=== PATIENT | female | born 1985 | race Caucasian/White ===

== ENCOUNTER 2018-03-19 14:25 | Emergency (ER) | payer OTHER, MEDICAID ==
[2018-03-19 14:43] VITALS: BP 166/102
--- NOTE | 2018-03-19 16:03 | XRAY Report ---
Reason: twisted rt ankle, pain Procedure Date: 03/19/2018 Accession Number: [id number] / [id number] Procedure: XR - Ankle 3 View RT CPT Code: FULL RESULT: EXAM: RIGHT ANKLE RADIOGRAPHY EXAM DATE: 03/19/2018 03:51 PM. CLINICAL HISTORY: Twisted right ankle yesterday. Pain and swelling. COMPARISON: None. TECHNIQUE: 3 views. FINDINGS: Bones: Normal. No fractures or bone lesions. Joints: Normal. No effusion. No subluxations. The ankle mortise is normally aligned. Soft Tissues: Unremarkable. IMPRESSION: Normal ankle radiography. [facility]
[2018-03-19] MEDS ORDERED: HYDROcod/ACETAM 5/325 MG TABLET PO STA (16:29)
--- NOTE | 2018-03-19 16:31 | ED Physician Documentation ---
PD HPI LOWER EXT INJURY - Stated complaint Stated Complaint: RT ANKLE PX - Chief complaint Chief Complaint: Ext Problem - History obtained from History obtained from: Patient - History of Present Illness PD HPI LOW EXT INJURY LOCATION: Right, Ankle Type of injury: Twist Where injury occurred: Work Timing - onset: Yesterday Timing - duration: Days (1) Timing - details: Gradual onset Pain level max: 6 Pain level now: 5 Improved by: Rest, Ice, Immobilization Worsened by: Moving, Palpating Associated symptoms: Swelling. No: Weakness, Numbness, Tingling Contributing factors: No: Anticoagulated, Prior ortho surgery Recently seen: Not recently seen Review of Systems Constitutional: denies: Fever, Chills GI: denies: Abdominal Pain, Vomiting, Diarrhea : denies: Now EGA Skin: denies: Rash PD PAST MEDICAL HISTORY - Past Medical History Past Medical History: No - Present Medications Home Medications: Ambulatory Orders Medication Instructions Recorded Confirmed Hydrocodone/Acetaminophen 1 - 2 each PO Q6H PRN #14 tablet 03/19/18 [Hydrocodon-Acetaminophen 5-325] - Allergies Allergies/Adverse Reactions: Allergies Allergy/AdvReac Type Severity Reaction Status Date / Time ibuprofen Allergy Unknown Verified 03/19/18 16:10 - Social History Does the pt smoke?: No Smoking Status: Never smoker PD ED PE NORMAL - Vitals Vital signs reviewed: Yes - General General: Alert and oriented X 3, No acute distress - Derm Derm: Warm and dry - Extremities Extremities: Other (R ankle - TTP medial malleolus. No other acute findings over the foot and ankle. NVI.) - Neuro Neuro: Alert and oriented X 3 - Psych Psych: Normal mood, Normal affect Results - Vitals Vitals: Vital Signs - 24 hr 03/19/18 14:34 Temperature 36.3 C L Heart Rate 90 Respiratory 18 Rate Blood Pressure 166/102 H O2 Saturation 99 Oxygen O2 Source Room air - Rads (name of study) R ankle xray Radiology: Prelim report reviewed, EMP read contemporaneously, See rad report (no acute bony abnormality.) PD MEDICAL DECISION MAKING - ED course Complexity details: reviewed results, re-evaluated patient, considered differential, d/w patient ED course: Patient is a 33-year-old female with a right ankle sprain. No acute findings on x-ray. Placed in a gel splint and given crutches. Will have her follow-up with her doctor for further care. Patient counseled regarding signs and symptoms for which I believe and urgent re-evaluation would be necessary. Patient with good understanding of and agreement to plan and is comfortable going home at this time This document was made in part using voice recognition software. While efforts are made to proofread this document, sound alike and grammatical errors may occur. Departure - Departure Disposition: 01 Home, Self Care Clinical Impression: Right ankle sprain Qualifiers: Encounter type: initial encounter Involved ligament of ankle: unspecified ligament Qualified Code(s): S93.401A - Sprain of unspecified ligament of right ankle, initial encounter Condition: Good Instructions: ED Sprain Ankle W X Ray Follow-Up: your,doctor in 1 week [Other] Prescriptions: Hydrocodone/Acetaminophen [Hydrocodon-Acetaminophen 5-325] 1 - 2 each PO Q6H PRN #14 tablet PRN Reason: pain Comments: Return if you worsen. Follow-up with your doctor for further care. You may bear weight as tolerated. This should improve over the next week. Do not drink alcohol or drive while on narcotic pain medicine. Note that many narcotic pain relievers also contain tylenol/acetaminophen. Please ensure that your total dose of acetaminophen from all sources does not exceed 3 grams (3000mg) per day. You may constipated on this medication, take a stool softener such as "Colace" twice a day while you are on it. Also recommend a segw-yki-iupnmft laxative such as senna or MiraLAX any day that you do not have a bowel movement. If you received narcotic pain medication in the emergency department, do not drive or operate machinery for the next 24 hours. Forms: Activity restrictions Discharge Date/Time: 03/19/18 16:55
== END 2018-03-19 16:55 | disposition home or self-care (01) ==
LOC: ED 14:25
DX: S93.401A Sprain of unspecified ligament of right ankle, initial encounter (principal); X50.1XXA Overexertion from prolonged static or awkward postures, initial encounter; Y99.0 Civilian activity done for income or pay
CPT/HCPCS: 73610; 99283; A9270

== ENCOUNTER 2018-07-02 03:45 | Outpatient (CLI) | payer MEDICAID | END 2018-07-02 03:46 | disposition critical access hospital (66) | LOC: EMS 03:45 | PROVIDERS: ATTEND Surgery | DX: R07.9 Chest pain, unspecified (principal); M25.562 Pain in left knee; V48.0XXA Car driver injured in noncollision transport accident in nontraffic accident, initial encounter; Y92.413 State road as the place of occurrence of the external cause | CPT/HCPCS: A0425; A0429; A0999 ==

== ENCOUNTER 2018-07-02 04:11 | Emergency (ER) | payer OTHER, MEDICAID ==
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
[2018-07-02] MEDS ORDERED: ACETAMINOPHEN 325 MG TABLET PO STA (04:41)
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
[2018-07-02] MEDS ORDERED: METHOCARBAMOL 500 MG TABLET PO STA (06:41)
[2018-07-02] MEDS ORDERED: MORPHINE 10 MG/ML VIAL IM STA (06:41)
[2018-07-02 08:39] VITALS: BP 122/86
== END 2018-07-02 08:42 | disposition home or self-care (01) ==
LOC: EDUNIT# → ED 04:11
DX: S16.1XXA Strain of muscle, fascia and tendon at neck level, initial encounter (principal); S00.03XA Contusion of scalp, initial encounter; S20.211A Contusion of right front wall of thorax, initial encounter; S80.02XA Contusion of left knee, initial encounter; S80.01XA Contusion of right knee, initial encounter; V47.5XXA Car driver injured in collision with fixed or stationary object in traffic accident, initial encounter
CPT/HCPCS: 36415; 70450; 71250; 72125; 73562; 96372; 99284; A9270

== ENCOUNTER 2019-09-17 22:39 | Emergency (ER) | payer MEDICAID, OTHER ==
[2019-09-17 23:15] LABS: BILIRUBIN,URINE NEGATIVE (NEGATIVE); GLUCOSE, URINE (UA) NEGATIVE (NEGATIVE); KETONES,URINE (UA) NEGATIVE (NEGATIVE); LEUKOCYTE ESTERASE, URINE NEGATIVE (NEGATIVE); NITRITE,URINE NEGATIVE (NEGATIVE); OCCULT BLOOD,URINE TRACE-INTA (NEGATIVE); PROTEIN,URINE NEGATIVE (NEGATIVE); UROBILINOGEN,URINE 0.2 (NORMAL) E.U./dL (NORMAL)
[2019-09-17 23:17] LABS: CLARITY,URINE CLEAR (CLEAR)
[2019-09-17 23:33] LABS: HCG UR QUAL NEGATIVE
--- NOTE | 2019-09-17 23:37 | ED Physician Documentation ---
PD HPI ABD PAIN - Stated complaint Stated Complaint: ABD PX/FEM PX - Chief complaint Chief Complaint: UTI - History obtained from History obtained from: Patient - History of Present Illness Timing - onset: How many days ago (2-3) Timing - duration: Days Timing - details: Gradual onset, Constant, Waxing and waning Pain level max: 8 Pain level now: 6 Quality: Pain Location: Other (vaginal and left pelvis) Radiation: Lower back Improved by: Other (nothing) Worsened by: Palpation Associated symptoms: Dysuria, Vaginal dc (scant). No: Fever, Hematuria, Vaginal bleeding Recently seen: Not recently seen - Additional information Additional information: c/o 2-3 days of vaginal pain, predominantly left-sided and area of tenderness to palpation on left introitus. pain has progressed in area to involve left pelvis. Initially she thought she might have a yeast infection and today she completed 3 days of OTC monistat without improvement. she reports fevers x 2 days with Tmax 101 this morning. tonight she developed pain across her lower back that radiates down BLE "to my knees", "burning sensation in my whole body". She also reports burning dysuria x 2 days Review of Systems Constitutional: reports: Fever, Chills, Sweats Throat: denies: Sore throat Cardiac: reports: Reviewed and negative Respiratory: reports: Reviewed and negative GI: denies: Abdominal Pain (pelvic pain, but not abdominal pain per se), Abdominal Swelling, Nausea, Vomiting, Diarrhea : reports: Dysuria, Discharge (scant). denies: Frequency, Hematuria, Vaginal bleeding, Now EGA Skin: denies: Rash Musculoskeletal: reports: Back pain PD PAST MEDICAL HISTORY - Past Medical History Cardiovascular: None Respiratory: None Neuro: None Endocrine/Autoimmune: None GI: None - Past Surgical History Past Surgical History: Yes - Present Medications Home Medications: Ambulatory Orders Medication Instructions Recorded Confirmed Oxycodone HCl/Acetaminophen 1 - 2 each PO Q6H PRN #14 tablet 09/18/19 [Percocet 5-325 mg Tablet] Sulfamethox/Trimeth 800/160 1 each PO BID #14 tablet 09/18/19 [Bactrim Ds 800/160] - Allergies Allergies/Adverse Reactions: Allergies Allergy/AdvReac Type Severity Reaction Status Date / Time ibuprofen Allergy Unknown Verified 09/17/19 22:47 - Social History Does the pt smoke?: No Smoking Status: Never smoker Does the pt drink ETOH?: Yes - POLST Patient has POLST: No PD ED PE NORMAL - Vitals Vital signs reviewed: Yes - General General: Alert and oriented X 3, Other (obese. appears uncomfortable) - HEENT HEENT: Moist mucous membranes - Neck Neck: Supple, no meningeal sign - Cardiac Cardiac: No murmur - Respiratory Respiratory: No respiratory distress, Clear bilaterally - Abdomen Abdomen: Soft, Non tender - Back Back: No CVA TTP - Derm Derm: Normal color, Warm and dry, No rash PD ED PE EXPANDED - Cardiac Cardiac: Tachy, Regular Rhythm - Female Female : Normal external, Vaginal Discharge (scant clear/white d/c), Cultures sent, Specialties Operator present (TERENCE Rose), Other (TTP left introitus without visible erythema or swelling. exam limited by obesity. she reported significant painful discomfort left introitus with insertion and withdrawal of speculum). No: Skin lesions, Vaginal Bleeding, CMT Results - Vitals Vitals: Vital Signs - 24 hr 09/17/19 09/18/19 22:44 03:18 Temperature 37.4 C 37.4 C Heart Rate 135 H 110 H Respiratory 18 18 Rate Blood Pressure 154/87 H 140/84 H O2 Saturation 99 99 Oxygen O2 Source Room air - Labs Labs: Microbiology 09/18/19 00:50 Wet Prep - Final Genital - Cervix Laboratory Tests 09/17/19 09/17/19 09/17/19 23:00 23:08 23:51 WBC 12.1 H RBC 4.34 Hgb 12.6 Hct 38.7 MCV 89.2 MCH 29.0 MCHC 32.6 RDW 12.9 Plt Count 269 MPV 9.3 Neut # (Auto) 9.3 H Lymph # (Auto) 1.9 [place] # (Auto) 0.6 Eos # (Auto) 0.2 Baso # (Auto) 0.1 Absolute Nucleated RBC 0.00 Nucleated RBC % 0.0 Sodium Potassium Chloride Carbon Dioxide Anion Gap BUN Creatinine Estimated GFR (MDRD) Glucose Calcium Total Bilirubin AST ALT Alkaline Phosphatase Total Protein Albumin Globulin Albumin/Globulin Ratio Lipase Urine Color YELLOW Urine Clarity CLEAR Urine pH 6.0 Ur Specific [place] 1.015 1.015 Urine Protein NEGATIVE Urine Glucose (UA) NEGATIVE Urine Ketones NEGATIVE Urine Occult Blood TRACE-INTA Urine Nitrite NEGATIVE Urine Bilirubin NEGATIVE Urine Urobilinogen 0.2 (NORMAL) Ur Leukocyte Esterase NEGATIVE Ur Microscopic Review NOT INDICATED Urine Culture Comments NOT INDICATED Urine HCG, Qual NEGATIVE 09/17/19 23:51 WBC RBC Hgb Hct MCV MCH MCHC RDW Plt Count MPV Neut # (Auto) Lymph # (Auto) [place] # (Auto) Eos # (Auto) Baso # (Auto) Absolute Nucleated RBC Nucleated RBC % Sodium 136 Potassium 3.7 Chloride 103 Carbon Dioxide 24 Anion Gap 9.0 BUN 8 Creatinine 0.6 Estimated GFR (MDRD) 114 Glucose 125 H Calcium 9.0 Total Bilirubin 0.3 AST 24 ALT 27 Alkaline Phosphatase 78 Total Protein 7.8 Albumin 4.1 Globulin 3.7 Albumin/Globulin Ratio 1.1 Lipase 25 Urine Color Urine Clarity Urine pH Ur Specific [place] Urine Protein Urine Glucose (UA) Urine Ketones Urine Occult Blood Urine Nitrite Urine Bilirubin Urine Urobilinogen Ur Leukocyte Esterase Ur Microscopic Review Urine Culture Comments Urine HCG, Qual PD MEDICAL DECISION MAKING - ED course Complexity details: reviewed results, re-evaluated patient, considered differential, d/w patient ED course: on reevaluation, patient reported improvement after PO vicodin. results reviewed w/patient. No etiology for her symptoms on tonight's tests. Her exam is concerning for possible early focal inflammatory process, such as left bartholin's gland infection, although at this time there is no visible or drainable collection. Given her exam findings, and her report of fevers to 101 at home, will rx bactrim (first dose in ED) to cover possible early bartholin's gland infection Departure - Departure Disposition: 01 Home, Self Care Clinical Impression: Vaginal infection Condition: Good Instructions: ED Vaginosis Bacterial Prescriptions: Oxycodone HCl/Acetaminophen [Percocet 5-325 mg Tablet] 1 - 2 each PO Q6H PRN #14 tablet PRN Reason: pain Sulfamethox/Trimeth 800/160 [Bactrim Ds 800/160] 1 each PO BID #14 tablet Discharge Date/Time: 09/18/19 03:18
[2019-09-17 23:57] LABS: BASOPHILS # (AUTO) 0.1 10^3/uL (0.0-0.1); BASOPHILS % (AUTO) 0.5 %; EOSINOPHILS # (AUTO) 0.2 10^3/uL (0.0-0.7); EOSINOPHILS % (AUTO) 1.5 %; HGB - HEMOGLOBIN 12.6 g/dL (12.0-16.0); LYMPHOCYTES # (AUTO) 1.9 10^3/uL (1.5-3.5); LYMPHOCYTES % (AUTO) 15.7 %; MEAN CORPUSCULAR HGB CONC 32.6 g/dL (32.0-36.0); MEAN CORPUSCULAR VOLUME 89.2 fL (81.0-99.0); MEAN PLATELET VOLUME 9.3 fL (7.9-10.8); MONOCYTES # (AUTO) 0.6 10^3/uL (0.0-1.0); MONOCYTES % (AUTO) 5.1 %; NEUTROPHILS # (AUTO) 9.3 10^3/uL (1.5-6.6); NEUTROPHILS % (AUTO) 76.7 %; PLT - PLATELET COUNT 269 10^3/uL (130-450); RED BLOOD COUNT 4.34 10^6/uL (4.20-5.40); RED CELL DISTRIBUTION WIDTH 12.9 % (12.0-15.0); WHITE BLOOD COUNT 12.1 x10^3/uL (4.8-10.8)
[2019-09-18 00:08] LABS: ALBUMIN 4.1 g/dL (3.2-5.5); ALBUMIN/GLOBULIN RATIO 1.1 (1.0-2.2); BILIRUBIN,TOTAL 0.3 mg/dL (0.2-1.0); CREATININE 0.6 mg/dL (0.4-1.0); TOTAL PROTEIN 7.8 g/dL (6.7-8.2)
[2019-09-18] MEDS: HYDROcod/ACETAM 5/325 MG TABLET PO STA (01:01)
--- NOTE | 2019-09-18 02:38 | Ultrasound Report ---
Reason: left pelvic pain Procedure Date: 09/18/2019 Accession Number: [id number] / [id number] Procedure: US - Pelvic Complete CPT Code: Final Report FULL RESULT: EXAM: PELVIC ULTRASOUND EXAM DATE: 09/18/2019 02:17 AM. CLINICAL HISTORY: Left pelvic pain. COMPARISON: None. TECHNIQUE: Realtime transabdominal pelvic scan performed to identify the uterus and adnexa and as an overview of other pelvic structures, followed by transvaginal scan to provide greater detail of the uterus and adnexa, with static image documentation. FINDINGS: Uterus: 8.5 x 3.4 x 3.2 cm, volume 50 cc. Anteverted position. Normal overall size and echotexture. Masses: None. Endometrium: 5 mm. Normal. Cervix: Unremarkable. Right Ovary: 1.5 x 1.3 x 1.0 cm, volume 1 cc. Normal echotexture and blood flow. Left Ovary: 2.0 x 1.9 x 1.4 cm, volume 3 cc. 1.3 cm follicle. Normal flow. Free Fluid: None. Other: None. IMPRESSION: 1.3 cm left ovarian follicle. Normal ovarian flow. [facility]
[2019-09-18] MEDS: SULFAMETH/TRIMETH DS 800/160 MG TABLET PO STA (03:16)
[2019-09-18 03:20] VITALS: BP 140/84
[2019-09-18 21:05] LABS: TRICHOMONAS VAGINALIS DNA NEGATIVE (NEGATIVE)
== END 2019-09-18 03:18 | disposition home or self-care (01) ==
LOC: ED 22:39
DX: N76.0 Acute vaginitis (principal)
CPT/HCPCS: 36415; 76830; 76856; 80053; 81003; 81025; 83690; 85025; 87210; 87491; 87591; 87661; 99284; A9270; 81001; 87086

== ENCOUNTER 2019-09-20 21:42 | Inpatient (IN) | payer MEDICAID ==
--- NOTE | 2019-09-20 22:55 | ED Physician Documentation ---
History of Present Illness - Stated complaint Stated Complaint: BODY PX - Chief complaint Chief Complaint: Abd Pain - Additonal information Additional information: This is a 34-year-old female with a history of obesity who presents with left lower abdominal as well as left buttock/vulvar discomfort. Patient states this began around 5 days ago, She first thought she had a yeast infection and treated this with [id number] medication without improvement. She was seen here on the And had a pelvic exam which was reportedly fairly unremarkable other than she had some left-sided tenderness suggestive of potential early Bartholin 's cyst/abscess, She was prescribed Bactrim, however despite taking the antibiotic she is continued to have increasing pain and erythema, she also had a fever as high as 102F last night. The pain is increasing and is currently severe and it hurts to move or to sit on her buttocks. She denies any chest pain or shortness of breath. 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 - Present Medications Home Medications: Ambulatory Orders Medication Instructions Recorded Confirmed Oxycodone HCl/Acetaminophen 1 - 2 each PO Q6H PRN #14 tablet 09/18/19 [Percocet 5-325 mg Tablet] Sulfamethox/Trimeth 800/160 1 each PO BID #14 tablet 09/18/19 [Bactrim Ds 800/160] - Allergies Allergies/Adverse Reactions: Allergies Allergy/AdvReac Type Severity Reaction Status Date / Time ibuprofen Allergy Unknown Verified 09/20/19 22:04 - Social History Does the pt smoke?: No Smoking Status: Never smoker Does the pt drink ETOH?: Yes - POLST Patient has POLST: No PD ED PE NORMAL - Vitals Vital signs reviewed: Yes - General General: Alert and oriented X 3, Other (Uncomfortable but nontoxic-appearing) - HEENT HEENT: PERRL - Neck Neck: Supple, no meningeal sign - Cardiac Cardiac: Other (Tachycardic, regular rhythm) - Respiratory Respiratory: No respiratory distress, Clear bilaterally - Abdomen Abdomen: Other (Soft, obese, tender in the left lower quadrant, remainder of abdomen is nontender to deep palpation) - Female Female : Other (There is erythema and edema of the labia majora and this edema extends to the left buttocks and the perianal area. No obvious area of fluctuance, no focal raised area, no lesions, no bullae. There are no skip lesions. ) - Derm Derm: Warm and dry - Extremities Extremities: No deformity - Neuro Neuro: Alert and oriented X 3 - Psych Psych: Normal mood, Normal affect Results - Vitals Vitals: Vital Signs - 24 hr 09/20/19 09/20/19 09/21/19 21:58 23:57 01:00 Temperature 37.6 C H 38 C H 37.7 C H Heart Rate 138 H 130 H 121 H Respiratory 19 30 H 19 Rate Blood Pressure 148/81 H 118/75 100/44 L O2 Saturation 100 96 Oxygen O2 Source Room air - EKG (time done) 22:38 Other comments: Other comments (Rate 128, rhythm sinus tachycardia, there is no ST segment elevation or depression, no abnormal T wave changes, QTC 431.) - Labs Labs: Laboratory Tests 09/20/19 09/20/19 09/20/19 22:50 22:50 22:50 WBC 10.2 RBC 4.22 Hgb 12.3 Hct 37.4 MCV 88.6 MCH 29.1 MCHC 32.9 RDW 12.8 Plt Count 260 MPV 9.3 Neut # (Auto) 7.3 H Lymph # (Auto) 2.0 [place] # (Auto) 0.6 Eos # (Auto) 0.2 Baso # (Auto) 0.1 Absolute Nucleated RBC 0.00 Nucleated RBC % 0.0 Sodium 132 L Potassium 3.6 Chloride 97 L Carbon Dioxide 25 Anion Gap 10.0 BUN 10 Creatinine 0.8 Estimated GFR (MDRD) 82 L Glucose 114 H Lactic Acid Calcium 8.6 Total Bilirubin 0.3 AST 38 ALT 49 Alkaline Phosphatase 106 C-Reactive Protein 17.1 H Total Protein 8.0 Albumin 3.9 Globulin 4.1 Albumin/Globulin Ratio 1.0 Lipase 20 L Urine Color Urine Clarity Urine pH Ur Specific Stanton Urine Protein Urine Glucose (UA) Urine Ketones Urine Occult Blood Urine Nitrite Urine Bilirubin Urine Urobilinogen Ur Leukocyte Esterase Urine RBC Urine WBC Ur Squamous Epith Cells Urine Bacteria Ur Microscopic Review Urine Culture Comments Urine HCG, Qual 09/20/19 09/20/19 09/20/19 22:50 23:02 23:02 WBC RBC Hgb Hct MCV MCH MCHC RDW Plt Count MPV Neut # (Auto) Lymph # (Auto) [place] # (Auto) Eos # (Auto) Baso # (Auto) Absolute Nucleated RBC Nucleated RBC % Sodium Potassium Chloride Carbon Dioxide Anion Gap BUN Creatinine Estimated GFR (MDRD) Glucose Lactic Acid 1.5 Calcium Total Bilirubin AST ALT Alkaline Phosphatase C-Reactive Protein Total Protein Albumin Globulin Albumin/Globulin Ratio Lipase Urine Color YELLOW Urine Clarity CLEAR Urine pH 6.0 Ur Specific Stanton 1.020 1.020 Urine Protein NEGATIVE Urine Glucose (UA) NEGATIVE Urine Ketones NEGATIVE Urine Occult Blood TRACE-INTA Urine Nitrite NEGATIVE Urine Bilirubin NEGATIVE Urine Urobilinogen 0.2 (NORMAL) Ur Leukocyte Esterase TRACE H Urine RBC 0-5 Urine WBC 0-3 Ur Squamous Epith Cells MOD Squamous H Urine Bacteria Few Ur Microscopic Review INDICATED Urine Culture Comments NOT INDICATED Urine HCG, Qual NEGATIVE - Rads (name of study) CT abd/pelvis W Radiology: Other (There is left perineal and perianal soft tissue edema with a small peripheral enhancing lesion anterior lateral to the anus in the left, likely representing a small phlegmon. Consider further evaluation with perianal protocol MRI to assess for perianal fistula, no evidence of bowel inflammation) PD MEDICAL DECISION MAKING - ED course Complexity details: considered differential (Abscess, cellulitis, Bartholin gland cyst, necrotizing soft tissue infection, diverticulitis, colitis, electrolyte abnormality) ED course: On arrival patient is tachycardic, initially she is afebrile but she does become febrile partway through her visit. IV was inserted, labs and blood cultures were drawn, patient was started on broad-spectrum antibiotics of vancomycin and Zosyn. She was given multiple doses of pain medication for discomfort. On her physical exam she has some diffuse erythema and edema of her left labia majora extending to her left buttocks, no focal area of fluctuance, no obvious bartholin's abscess. The erythema and edema does not progress through her stay here and I do not see overt signs of necrotizing soft tissue infection. Her labs show a normal leukocytosis, mild hyponatremia, mildly elevated glucose of 114 her CRP is quite elevated at 17.1. Her urine is negative for infection. She has no respiratory symptoms at this time, she is clear lungs, I highly doubt respiratory pathology as a cause of her presentation. CT of her abdomen pelvis with contrast was obtained and shows a phlegmon in the left perianal area, does not show any acute intestinal pathology. After multiple liters of fluid and the antibiotics that she remains tachycardic, her blood pressure is stable in the 110s over 80s on my evaluation. She appears to have sepsis from soft tissue infection, without signs of septic shock, necrotizing soft tissue infection or other emergent surgical pathology at this time. She has failed outpatient antibiotics. She was admitted to the medicine service for further evaluation and treatment, patient was updated with all results and plan of care, she is in agreement and was admitted in stable condition Departure - Departure Disposition: [facility] DC/Xfer Clinical Impression: Phlegmon Sepsis Qualifiers: Sepsis type: sepsis due to unspecified organism Sepsis acute organ dysfunction status: unspecified Qualified Code(s): A41.9 - Sepsis, unspecified organism Condition: Stable Discharge Date/Time: 09/21/19 02:50
[2019-09-20 22:59] LABS: BASOPHILS # (AUTO) 0.1 10^3/uL (0.0-0.1); BASOPHILS % (AUTO) 0.6 %; EOSINOPHILS # (AUTO) 0.2 10^3/uL (0.0-0.7); EOSINOPHILS % (AUTO) 1.8 %; HGB - HEMOGLOBIN 12.3 g/dL (12.0-16.0); LYMPHOCYTES % (AUTO) 19.4 %; MEAN CORPUSCULAR HEMOGLOBIN 29.1 pg (27.0-31.0); MEAN CORPUSCULAR HGB CONC 32.9 g/dL (32.0-36.0); MEAN CORPUSCULAR VOLUME 88.6 fL (81.0-99.0); MEAN PLATELET VOLUME 9.3 fL (7.9-10.8); MONOCYTES # (AUTO) 0.6 10^3/uL (0.0-1.0); MONOCYTES % (AUTO) 5.9 %; NEUTROPHILS # (AUTO) 7.3 10^3/uL (1.5-6.6); NEUTROPHILS % (AUTO) 71.9 %; PLT - PLATELET COUNT 260 10^3/uL (130-450); RED BLOOD COUNT 4.22 10^6/uL (4.20-5.40); RED CELL DISTRIBUTION WIDTH 12.8 % (12.0-15.0); WHITE BLOOD COUNT 10.2 x10^3/uL (4.8-10.8)
[2019-09-20 23:12] LABS: ALBUMIN 3.9 g/dL (3.2-5.5); BILIRUBIN,TOTAL 0.3 mg/dL (0.2-1.0); CALCIUM 8.6 mg/dL (8.5-10.3); CREATININE 0.8 mg/dL (0.4-1.0)
[2019-09-20 23:19] LABS: BILIRUBIN,URINE NEGATIVE (NEGATIVE); GLUCOSE, URINE (UA) NEGATIVE (NEGATIVE); KETONES,URINE (UA) NEGATIVE (NEGATIVE); LEUKOCYTE ESTERASE, URINE TRACE (NEGATIVE); NITRITE,URINE NEGATIVE (NEGATIVE); OCCULT BLOOD,URINE TRACE-INTA (NEGATIVE); PROTEIN,URINE NEGATIVE (NEGATIVE); UROBILINOGEN,URINE 0.2 (NORMAL) E.U./dL (NORMAL)
[2019-09-20 23:25] LABS: CLARITY,URINE CLEAR (CLEAR)
[2019-09-20 23:29] LABS: BACTERIA,URINE Few /HPF (None Seen); HCG UR QUAL NEGATIVE; RBC,URINE 0-5 /HPF (0-5); SQUAMOUS EPITHELIAL CELL,UR MOD Squamous (<= Few)
[2019-09-20] MEDS ORDERED: MORPHINE 2 MG/ML CARPUJECT IVP STA (23:43)
[2019-09-20] MEDS ORDERED: ONDANSETRON 4 MG/2 ML VIAL IVP STA (23:43)
[2019-09-20] MEDS ORDERED: SODIUM CHLORIDE 0.9% 1,000 ML IV ONE ×2 (23:43→23:44)
[2019-09-21] MEDS ORDERED: PIPERACILLIN/TAZOBACTAM 4.5 GM in SODIUM CHLORIDE 0.9% MINIBAG 100 ML IV STA ×2
[2019-09-21] MEDS ORDERED: IOVERSOL 320 100 ML VIAL IVP ONE ×2 (00:03→00:42)
[2019-09-21] MEDS ORDERED: MORPHINE 2 MG/ML CARPUJECT IVP STA (00:13)
--- NOTE | 2019-09-21 01:34 | CT Report ---
Reason: LLQ pain and L labial/buttocks erythema/infection Procedure Date: 09/21/2019 Accession Number: [id number] / [id number] Procedure: CT - Abdomen/Pelvis W CPT Code: Final Report FULL RESULT: EXAM: CT ABDOMEN AND PELVIS EXAM DATE: 09/21/2019 12:39 AM. CLINICAL HISTORY: Left lower quadrant abdominal pain. Left labial and buttock erythema. COMPARISONS: None. TECHNIQUE: Routine helical CT imaging was performed through the abdomen and pelvis. IV contrast: 100 mL ISOVUE 370. Enteric contrast: No. Reconstructions: Coronal and sagittal. In accordance with CT protocol optimization, one or more of the following dose reduction techniques were utilized for this exam: automated exposure control, adjustment of mA and/or KV based on patient size, or use of iterative reconstructive technique. FINDINGS: Motion artifact degrades the examination. Bibasilar dependent atelectasis is seen. The visible heart is normal in size. There is no pericardial effusion. There is a suggestion of hepatomegaly. An exact measurement cannot be obtained as a result of excessive motion. No focal intrahepatic mass is seen. The gallbladder is normal. There is no biliary dilatation. The spleen enhances normally. The pancreas and adrenal glands are normal. Kidneys enhance symmetrically. There is no renal mass or hydronephrosis. The intestines are normal in caliber and position. Retained stool is seen in the majority of the colon. No rectal wall thickening is seen. The appendix is not visible. No pericecal fat stranding is seen. There is no evidence of bowel obstruction or inflammation. No free intraperitoneal air or ascites is seen. The abdominal aorta is normal in course and caliber. The bladder is normal. The uterus and ovaries are within normal limits. There is no free pelvic fluid. Edema is seen in the left perineal and perianal soft tissues. A small hypoattenuating lesion with suggestion of peripheral enhancement is seen anterior to the anus on the left measuring approximately 7 x 9 mm. Prominent left inguinal lymph nodes are likely reactive and measure up to 1.4 cm in the short axis dimension. No suspicious lytic or blastic lesions are seen. IMPRESSION: 1. Left perineal and perianal soft tissue edema with small peripherally enhancing lesion anterolateral to the anus on the left, likely representing a small phlegmon. Consider further evaluation with a perianal protocol MRI to assess for a perianal fistula. 2. No evidence of bowel inflammation. RADIA
[2019-09-21] MEDS ORDERED: VANCOMYCIN INJ 2 GM in SODIUM CHLORIDE 0.9% 500 ML IV STA (01:50)
[2019-09-21] MEDS ORDERED: HYDROmorphone 2 MG/ML VIAL IVP STA (01:51)
[2019-09-21] MEDS ORDERED: PROCHLORPERAZINE 10 MG/2 ML VIAL IVP PRN (02:15)
[2019-09-21] MEDS ORDERED: oxyCODONE 5 MG TABLET PO PRN (02:15)
[2019-09-21] MEDS ORDERED: ACETAMINOPHEN 325 MG TABLET PO PRN (02:15)
[2019-09-21] MEDS: HYDROmorphone 1 MG/ML CARPUJECT IVP PRN ×8 (04:15→22:36)
[2019-09-21 05:44] LABS: HGB - HEMOGLOBIN 10.6 g/dL (12.0-16.0); MEAN CORPUSCULAR HEMOGLOBIN 28.3 pg (27.0-31.0); MEAN CORPUSCULAR HGB CONC 31.3 g/dL (32.0-36.0); MEAN CORPUSCULAR VOLUME 90.6 fL (81.0-99.0); MEAN PLATELET VOLUME 9.3 fL (7.9-10.8); RED BLOOD COUNT 3.74 10^6/uL (4.20-5.40); WHITE BLOOD COUNT 9.5 x10^3/uL (4.8-10.8)
[2019-09-21 05:49] LABS: CALCIUM 7.7 mg/dL (8.5-10.3); CREATININE 0.7 mg/dL (0.4-1.0)
[2019-09-21] MEDS: PANTOPRAZOLE 40 MG TABLET PO SCH (06:33)
[2019-09-21] MEDS: PIPERACILLIN/TAZOBACTAM 3.375 GM in SODIUM CHLORIDE 0.9% MINIBAG 100 ML IV SCH ×3 (06:33→17:43)
--- NOTE | 2019-09-21 06:43 | HISTORY & PHYSICAL EXAMINATION ---
Chief Complaint - Chief Complaint Chief Complaint: Pain in groin, vaginal area History of Present Illness - Admitted From Admitted From:: Emergency Room - History Obtained From Records Reviewed: Emergency Room, today and 09/16 History obtained from: Patient and ED physician Exam Limitations: None - History of Present Illness HPI Comment/Other: Patient is a healthy 34-year-old female with no significant past medical history who presents with a chief complaint pain, pain, burning in the genital and groin region.She states that her symptoms began on 09/15/2019, and she thought she had a yeast infection. She also developed dysuria around this time as well. She put up with it at home and tried some jldl-nyo-lnbkeyp remedies including Monistat, but it did not improve so she presented to the emergency room on 09/17/2019. At this time, she was diagnosed presumptively with bacterial vaginosis and was discharged home on Bactrim. Since then, after going home it did not improve. She also became febrile and documented a T maximum of 102 F at home yesterday. She denied any vomiting, but did have some mild nausea. She also noted that the pain was spreading down the lower extremity, and of the left side and a burning sensation. She return to the emergency room for further evaluation, where a physical exam was done including a pelvic exam showing a significantly erythematous and edematous to left valvular region. A CT scan of the abdomen and pelvis was performed which showed perineal and perianal cellulitis with phlegmon. There was no notable abscess or cyst on the CT scan. Her white blood cell count was normal. She was afebrile emergency department. However, because she was felt to have failed outpatient antibiotics and because of the extent of the infection, hospital admission was requested. History - Past Medical History Cardiovascular: reports: None Respiratory: reports: None Neuro: reports: None Endocrine/Autoimmune: reports: None GI: reports: None : reports: None Psych: reports: None Musculoskeletal: reports: None Derm: reports: None MRSA Hx?: No - Past Surgical History /[employer]: reports: section - Family & Social History Family History Comment/Other: Patient endorses family history of diabetes Living arrangement: At home Living Situation: With spouse/s.o., With family - Substance History Use: Uses substance without health or social issues: NONE Abuse: Recurrent use of substance despite neg consequences: NONE Dependence: Experiences withdrawal or developed tolerances: NONE - POLST Patient has POLST: No POLST Status: Full Code Meds/Allgy - Home Medications Home Medications: Ambulatory Orders Medication Instructions Recorded Confirmed Oxycodone HCl/Acetaminophen 1 - 2 each PO Q6H PRN #14 tablet 09/18/19 [Percocet 5-325 mg Tablet] Sulfamethox/Trimeth 800/160 1 each PO BID #14 tablet 09/18/19 [Bactrim Ds 800/160] - Allergies Allergies/Adverse Reactions: Allergies Allergy/AdvReac Type Severity Reaction Status Date / Time ibuprofen Allergy Unknown Verified 09/20/19 22:04 Review of Systems - Constitutional Constitutional: reports: Fatigue, Fever, Chills - Gastrointestinal Gastrointestinal: reports: Abdominal pain. denies: Diarrhea, Change in bowel habits - Genitourinary Genitourinary: reports: Dysuria. denies: Urgency, Urethral discharge - Integumentary Integumentary: reports: Other (Burning sensation, swelling, redness to the groin). denies: Rash - All Other Systems All Other Systems: reports: Reviewed and negative Prior Level of Functionality: Fully independent Exam - Vital Signs Reviewed Vital Signs: Yes Vital Signs: Vital Signs x48h Temp Pulse Resp BP Pulse Ox 09/21/19 01:00 37.7 C H 121 H 19 100/44 L 09/20/19 23:57 38 C H 130 H 30 H 118/75 96 - Physical Exam General Appearance: positive: No acute distress Eyes Bilateral: positive: Normal inspection, EOMI ENT: positive: ENT inspection nml Neck: positive: Nml inspection, Thyroid nml, No JVD Respiratory: positive: Chest non-tender, No respiratory distress, Breath sounds nml Cardiovascular: positive: No murmur, No gallop, Tachycardia Peripheral Pulses: positive: 2+ Abdomen: positive: Tenderness (Left lower quadrant tenderness With light palpation) Skin: positive: Other (There is severe erythema and edema of the left labial tissue, without identifiable Bartholin's cyst. There is minimal surrounding erythema into the left groin and medial aspect of the left proximal thigh.) Extremities: positive: Nml appearance (Except as above, no significant erythema, swelling of the lower two thirds of the legs) Neurologic/Psychiatric: positive: Oriented x3 Sepsis Event Note (H) - Evaluation Current Stage of Sepsis: Ruled out (Normal white cell count, no fever, lactic acid is normal) Conclusion/Plan - Problem List (1) Cellulitis of labia majora Conclusion/Plan: I have reviewed results of the CT scan, and there appears to be no drainable abscess at this time. No evidence of sepsis at this time. Blood culture results are pending.Would agree with inpatient admission given failure of outpatient oral antibiotics. Start with broad-spectrum including vancomycin and Zosyn following the clinical course and microbiology results. Consider general surgery and/or gynecology consult pending clinical course, consider repeat CT scan pending clinical course to ensure development of abscess is not missed as this would require surgical drainage and not resolve with antibiotics alone. (2) Cellulitis of perianal region Conclusion/Plan: Same plan as above, extensive cellulitis extends into the perianal region with p hlegmon. (3) Tachycardia Conclusion/Plan: Heart rates have been in the 1 10-1 20 range, with normal blood pressures. Not consistent with sepsis. May be related to pain. Seems to have improved somewhat after receiving Dilaudid in the ED. We will monitor closely, consider further work-up if not resolved with adequate pain control. (4) Morbid obesity Conclusion/Plan: Will cancer genetic counselor on weight loss prior to discharge - Lab Results Lab results reviewed: Yes Fish Bones: 09/21/19 05:05 09/21/19 05:05 - Diagnostic Imaging Results Diagnostic Imaging Results: positive: Final report reviewed - EKG Results EKG Interpreted Independently: Yes EKG Comparison: Old EKG unavailable Core Measures - Anticipated LOS I expect patient to be DC'd or transferred within 96 hours.: Yes - DVT/VTE - Prophylaxis VTE/DVT Device ordered at admit?: No VTE/DVT Prophylaxis med ordered at admit?: Yes
[2019-09-21] MEDS: SODIUM CHLORIDE FLUSH 0.9% 10 ML SYRINGE IVP SCH ×2 (08:16→16:32)
[2019-09-21] MEDS ORDERED: HEPARIN 5,000 UNIT/ML VIAL SUBQ SCH (09:00)
[2019-09-21] MEDS ORDERED: VANCOMYCIN INJ 1.5 GM in SODIUM CHLORIDE 0.9% 500 ML IV SCH (10:00)
[2019-09-21] MEDS: HYDROcod/ACETAM 7.5 MG/325 MG TABLET PO PRN ×3 (10:37→20:38)
[2019-09-21] MEDS: SODIUM CHLORIDE 0.9% 1,000 ML IV SCH (11:03)
[2019-09-21] MEDS: VANCOMYCIN INJ 1 GM, VANCOMYCIN INJ 250 MG in SODIUM CHLORIDE 0.9% 250 ML IV SCH ×2 (11:12→18:28)
[2019-09-21] MEDS ORDERED: BUPIVACAINE 0.5%-EPI 1:200000 PF 30 ML VIAL SUBQ SCH (12:23)
--- NOTE | 2019-09-21 12:28 | CONSULTATION NOTE ---
Referring Provider Name of Referring Provider:: ROMARIO Consult Date: 09/21/19 Chief Complaint - Chief Complaint Chief Complaint: soft tissue infection History of Present Illness - Admitted From Admitted From:: ED - History Obtained From Records Reviewed: medical records History obtained from: patient and medical records Exam Limitations: none - History of Present Illness HPI Comment/Other: Sheron is a very pleasant 34-year-old WF who was recently admitted for cellulits of the left groin. This area has worsened and I was consulted for possible surgical intervention. Sheron presented with pain, burning in the genital and groin region.She states that her symptoms began on 09/15/2019, and she thought she had a yeast infection. She also developed dysuria around this time as well. She put up with it at home and tried some [id number] remedies including Monistat, but it did not improve so she presented to the emergency room on 09/17/2019. At this time, she was diagnosed presumptively with bacterial vaginosis and was discharged home on Bactrim. She did not improve and became febrile and documented a T maximum of 102 F at home. She denied any vomiting, but did have some mild nausea. She also noted that the pain was spreading down the lower extremity, and of the left side and a burning sensation. She return to the emergency room for further evaluation, where a physical exam was done including a pelvic exam showing a significantly erythematous and edematous to left valvular region. A CT scan of the abdomen and pelvis was performed which showed perineal and perianal cellulitis with phlegmon. There was no notable abscess or cyst on the CT scan. HShe was admitted and started on IV abx and has worsened and started draining some last pm and I was consulted. Sheron states she has never had this problem before, she usually waxes this area on a routine basis, however, given the current COVID situation she had to shave the area and did so a day or two before all this started. No change in her bowels of late. 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: section - Family & Social History Family History Comment/Other: Patient endorses family history of diabetes Living arrangement: At home Living Situation: With spouse/s.o., With family - Substance History Use: Uses substance without health or social issues: NONE Abuse: Recurrent use of substance despite neg consequences: NONE Dependence: Experiences withdrawal or developed tolerances: NONE - POLST Patient has POLST: No POLST Status: Full Code Meds/Allgy - Home Medications Home Medications: Ambulatory Orders Medication Instructions Recorded Confirmed No Known Home Medications 09/21/19 09/21/19 - Allergies Allergies/Adverse Reactions: Allergies Allergy/AdvReac Type Severity Reaction Status Date / Time ibuprofen Allergy Unknown Verified 09/20/19 22:04 Review of Systems - Constitutional Constitutional: reports: Fatigue, Fever, Chills - Eyes Eyes: denies: Pain - Ears, Nose & Throat Ears, Nose & Throat: denies: Ear pain - Cardiovascular Cariovascular: denies: Irregular heart rate, Palpitations, Chest pain - Respiratory Respiratory: denies: Cough, Sputum production, Wheezing - Gastrointestinal Gastrointestinal: denies: Abdominal pain, Abdominal distention, Constipation - Genitourinary Genitourinary: reports: Dysuria, Frequency, Other (pain and redness to the left side between her vaginal opening and her thigh) - Musculoskeletal Musculoskeletal: reports: Muscle pain, Muscle aches - Integumentary Integumentary: reports: Rash - Neurological Neurological: denies: General weakness - All Other Systems All Other Systems: reports: Reviewed and negative Exam - Vital Signs Reviewed Vital Signs: Yes Vital Signs: Vital Signs x48h Temp Pulse Resp BP Pulse Ox 09/21/19 09:06 37.8 C H 113 H 16 103/66 96 - Physical Exam General Appearance: positive: No acute distress Eyes Bilateral: positive: Normal inspection ENT: positive: ENT inspection nml Neck: positive: Nml inspection Respiratory: positive: No respiratory distress, Breath sounds nml Cardiovascular: positive: Regular rate & rhythm Abdomen: positive: Non-tender, Nml bowel sounds, No distention Rectal: positive: Other (severe central redness of 5 cm x 3cm inferior edge of the labia majora towards the perianal area that is very tender and thickened but not obvious area of fluctulance, with slight purulent drainage centrally with surrounding fading erythema mostly anteriorally towards the mons and the inner thigh) Extremities: positive: Full ROM, Nml appearance Neurologic/Psychiatric: positive: Oriented x3, Mood/affect nml Conclusion and Plan - Lab Results Laboratory Results 09/21/19 05:05: Sodium 136, Potassium 3.8, Chloride 104, Carbon Dioxide 24, Anion Gap 8.0, BUN 8, Creatinine 0.7, Estimated GFR (MDRD) 96, Glucose 109 H, Calcium 7.7 L 09/21/19 05:05: WBC 9.5, RBC 3.74 L, Hgb 10.6 L, Hct 33.9 L, MCV 90.6, MCH 28.3, MCHC 31.3 L, RDW 13.0, Plt Count 258, MPV 9.3 09/20/19 23:02: Ur Specific [place] 1.020, Urine HCG, Qual NEGATIVE 09/20/19 23:02: Urine Color YELLOW, Urine Clarity CLEAR, Urine pH 6.0, Ur Specific [place] 1.020, Urine Protein NEGATIVE, Urine Glucose (UA) NEGATIVE, Urine Ketones NEGATIVE, Urine Occult Blood TRACE-INTA, Urine Nitrite NEGATIVE, Urine Bilirubin NEGATIVE, Urine Urobilinogen 0.2 (NORMAL), Ur Leukocyte Esterase TRACE H, Urine RBC 0-5, Urine WBC 0-3, Ur Squamous Epith Cells MOD Squamous H, Urine Bacteria Few, Ur Microscopic Review INDICATED, Urine Culture Comments NOT INDICATED 09/20/19 22:50: Lactic Acid 1.5 09/20/19 22:50: C-Reactive Protein 17.1 H 09/20/19 22:50: Sodium 132 L, Potassium 3.6, Chloride 97 L, Carbon Dioxide 25, Anion Gap 10.0, BUN 10, Creatinine 0.8, Estimated GFR (MDRD) 82 L, Glucose 114 H, Calcium 8.6, Total Bilirubin 0.3, AST 38, ALT 49, Alkaline Phosphatase 106, Total Protein 8.0, Albumin 3.9, Globulin 4.1, Albumin/Globulin Ratio 1.0, Lipase 20 L 09/20/19 22:50: WBC 10.2, RBC 4.22, Hgb 12.3, Hct 37.4, MCV 88.6, MCH 29.1, MCHC 32.9, RDW 12.8, Plt Count 260, MPV 9.3, Neut # (Auto) 7.3 H, Lymph # (Auto) 2.0, [place] # (Auto) 0.6, Eos # (Auto) 0.2, Baso # (Auto) 0.1, Absolute Nucleated RBC 0.00, Nucleated RBC % 0.0 - Diagnostic Imaging Results Diagnostic Imaging Results: positive: Final report reviewed, Read independently - Diagnosis Diagnosis: cellulitis of the perineal area with possible abscess - Plan Plan: Sheron is a very pleasant 34 yo with level III obesity who developed cellulitis most likely from shaving of the perineal area with an area of phlegmon on CT that although labs are improving clinically the area is increasing in size and becoming more painful. In depth, discussion with the patient was held. We went through the normal anatomy we then discussed the pathophysiology of the disease and lastly the possible etiologies including an ingrown hair following shaving, we also discussed possible rectal sourced fistula based on the CT scan findings of perirectal soft tissue swelling. We discussed their specific clinical, laboratory and imaging findings. We then went through the indications for the surgical intervention and the alternatives including use of antibiotics and observation. We reviewed the risks, the benefits and potential short term and intermediate accountant complications of each of the options. They have expressed understanding of the operations complications to include but not limited to bleeding, infection, need for further procedure or formal operation, injury to neighboring structures,. The patient understands and accepts these risks. Their questions were answered to their satisfaction and they have requested to proceed with bedside I&D. Consent obtained.
--- NOTE | 2019-09-21 12:36 | PHARMACY PROGRESS NOTE ---
- Best Possible Medication History Admit Date and Time: 09/21/19 0215 Processed by: Pharmacy Medication History completed: Yes Patient Interview: Pt unable to participate Secondary Source(s): Pharmacy records As the person ultimately responsible for medication therapy, providers are able to order a medication from an existing home medication list in [facility] via the "Reconcile Routine" prior to Confirmation of that medication by office support assistant. Such practice is discouraged except when the physician, in their clinical judgment, deems that a medical need exists for a medication without regard to previous use.
[2019-09-21] MEDS ORDERED: HYDROmorphone 1 MG/ML CARPUJECT IVP SCH (13:00)
--- NOTE | 2019-09-21 14:53 | OPERATIVE REPORT ---
Operative Report - General Admit Date: 09/21/19 Pre-Op Diagnosis: perineal abscess Procedure Performed: Sharp Debridment and irrigation of skin and soft tissue to subcutaneous fat of the perineal area Post Op Diagnosis: same - Procedure Note Primary Surgeon: Monica Santos MD Anesthesia Technique: Local Pathology: none, very small amount of purulent material found, and patient is on ABX, cultures deferred Estimated Blood Loss (mL): 100 Indications: Sheron is a very pleasant 34 yo with level III obesity who developed cellulitis most likely from shaving of the perineal area with an area of phlegmon on CT that although labs are improving clinically the area is increasing in size and becoming more painful. In depth, discussion with the patient was held. We went through the normal anatomy we then discussed the pathophysiology of the disease and lastly the possible etiologies including an ingrown hair following shaving, we also discussed possible rectal sourced fistula based on the CT scan findings of perirectal soft tissue swelling. We discussed their specific clinical, laboratory and imaging findings. We then went through the indications for the surgical intervention and the alternatives including use of antibiotics and observation. We reviewed the risks, the benefits and potential short term and intermediate complications of each of the options. They have expressed understanding of the operations complications to include but not limited to bleeding, infection, need for further procedure or formal operation, injury to neighboring structures,. The patient understands and accepts these risks. Their questions were answered to their satisfaction and they have requested to proceed with bedside I&D. Consent obtained. Findings: Phelgmon of the area with very small pocket of purulent fluid Complications: none - Other Other Information/Narrative: Patient placed in the supine position with legs frog legged on the overlying skin was marked over the central area of concern. The area was the prepped and draped as well in the standard sterile fashion and a timeout was held. Local was infiltrated in the area. Once adequate using 11 blade scalpel a 4 cm incision was made overlying the area and subcutaneous dissection with a hemastat to open the area up . Small amount of purulent fluid was found. The area was then copiously irrigated. After confirming hemostasis, the wound was then cleaned and iodoform gauze placed into the wound and then overlying dressings were placed. The drapes were removed and the patient placed into a comfortable position. The patient tolerated the procedure well, all sponge sharp and instrument counts were correct.
[2019-09-21] MEDS: ONDANSETRON 4 MG/2 ML VIAL IVP PRN (21:46)
[2019-09-21] MEDS: ACETAMINOPHEN 325 MG TABLET PO PRN (21:58)
[2019-09-22] MEDS: SODIUM CHLORIDE 0.9% 1,000 ML IV SCH ×2 (00:14→02:26)
[2019-09-22] MEDS: PIPERACILLIN/TAZOBACTAM 3.375 GM in SODIUM CHLORIDE 0.9% MINIBAG 100 ML IV SCH ×4 (00:18→18:08)
[2019-09-22] MEDS: HYDROcod/ACETAM 7.5 MG/325 MG TABLET PO PRN ×5 (00:26→20:30)
[2019-09-22] MEDS: HYDROmorphone 1 MG/ML CARPUJECT IVP PRN ×7 (00:26→19:47)
[2019-09-22] MEDS: SODIUM CHLORIDE FLUSH 0.9% 10 ML SYRINGE IVP SCH ×3 (01:46→16:17)
[2019-09-22] MEDS: VANCOMYCIN INJ 1 GM, VANCOMYCIN INJ 250 MG in SODIUM CHLORIDE 0.9% 250 ML IV SCH (02:31)
[2019-09-22 05:34] LABS: HGB - HEMOGLOBIN 9.8 g/dL (12.0-16.0); MEAN CORPUSCULAR HGB CONC 31.2 g/dL (32.0-36.0); MEAN CORPUSCULAR VOLUME 92.9 fL (81.0-99.0); MEAN PLATELET VOLUME 9.3 fL (7.9-10.8); RED BLOOD COUNT 3.38 10^6/uL (4.20-5.40); RED CELL DISTRIBUTION WIDTH 12.9 % (12.0-15.0); WHITE BLOOD COUNT 6.3 x10^3/uL (4.8-10.8)
[2019-09-22 05:40] LABS: BUN - BLOOD UREA NITROGEN < 5 mg/dL (6-20); CALCIUM 7.9 mg/dL (8.5-10.3); CARBON DIOXIDE - CO2 25 mmol/L (21-32); CHLORIDE 104 mmol/L (101-111); CREATININE 0.6 mg/dL (0.4-1.0); GLUCOSE 102 mg/dL (70-100); SODIUM 136 mmol/L (135-145)
[2019-09-22] MEDS: PANTOPRAZOLE 40 MG TABLET PO SCH (05:58)
[2019-09-22] MEDS: DOCUSATE SODIUM 250 MG CAPSULE PO SCH (08:09)
[2019-09-22] MEDS: polyethylene glycoL 3350 17 GM PACKET PO SCH (08:10)
[2019-09-22] MEDS: ENOXAPARIN 40 MG/0.4 ML SYRINGE SUBQ SCH (08:11)
[2019-09-22] MEDS: ONDANSETRON 4 MG/2 ML VIAL IVP PRN ×2 (08:19→16:16)
[2019-09-22] MEDS: ACETAMINOPHEN 325 MG TABLET PO PRN ×2 (08:38→16:34)
[2019-09-22 10:46] LABS: VANCOMYCIN,TROUGH 9.7 ug/mL (10.0-20.0)
--- NOTE | 2019-09-22 11:25 | PHARMACY PROGRESS NOTE ---
- Therapy Status Vancomycin regimen day #: 2 Therapy status: Trough subtherapeutic Basis for treatment: Empirical Treatment indication: CELLULITIS Trough goal: 15-20 Concurrent antibiotics: ZOSYN - NAA Risk Risk level for Acute Kidney Injury: Moderate Acute Kidney Injury risk factors: Piperacillin/Tozobactam, Wt >100kg or BMI >40, IV contrast within 72 hrs, Goal trough >15, Total daily Vancomycin >4 grams - Monitoring and Recommendation Clinical response to treatment: I&O Previous 24 hours 09/20/19 09/21/19 09/22/19 23:59 23:59 23:59 Intake Total 5046.667 2201.666 Output Total 200 Balance 4846.667 2201.666 Lab Results 09/22/19 09/21/19 09/20/19 05:00 05:05 22:50 BUN < 5 L 8 10 Creatinine 0.6 0.7 0.8 Estimated GFR (MDRD) 114 96 82 L Vancomycin Monitoring 09/22/19 10:30 Vancomycin Trough 9.7 L Cultures 09/20/19 23:55 Blood Blood Culture - Preliminary NO GROWTH AFTER 1 DAY 09/20/19 22:50 Blood Blood Culture - Preliminary NO GROWTH AFTER 1 DAY Monitoring plan: Daily serum creatinine Next trough due (date/time): 09/24/19 AT 1230 Areas for additional monitoring: IV to PO when appropriate Pharmacy recommendation: Increase dose
--- NOTE | 2019-09-22 11:51 | PROVIDER PROGRESS NOTE ---
Subjective - General Admit Date: 09/21/19 Procedure Date: 09/21/19 Post Op Days: 1 Procedure Performed: I&D of perivulvar phlegmon - Other Other Information/Narrative: Feels better but still quite sore. Packing fell out overnight and was replaced this morning. Objective - Patient Data Reviewed Vital Signs: Yes Vital Signs: Vital Signs x48h Temp Pulse Pulse Resp BP Pulse Ox 09/22/19 10:16 37.1 C 103 H 16 96 09/22/19 07:40 37.1 C 95 16 109/68 95 Weight: Weight 09/20/19 09/21/19 09/22/19 23:59 23:59 23:59 Weight (kg) 174.633 kg 174.6 kg Intake & Output: Intake and Output Totals x24h 09/20/19 09/21/19 09/22/19 23:59 23:59 23:59 Intake Total 5046.667 2201.666 Output Total 200 Balance 4846.667 2201.666 - Lab Results Lab Results: 09/22/19 05:00 09/22/19 05:00 Other Lab Results: Lab Results x24hrs 09/22/19 09/22/19 09/22/19 Range/Units 10:30 05:00 05:00 WBC (4.8-10.8) x10^3/uL RBC (4.20-5.40) 10^6/uL Hgb (12.0-16.0) g/dL Hct (37.0-47.0) % MCV (81.0-99.0) fL MCH (27.0-31.0) pg MCHC (32.0-36.0) g/dL RDW (12.0-15.0) % Plt Count (130-450) 10^3/uL MPV (7.9-10.8) fL Sodium 136 (135-145) mmol/L Potassium 3.8 (3.5-5.0) mmol/L Chloride 104 (101-111) mmol/L Carbon Dioxide 25 (21-32) mmol/L Anion Gap 7.0 (6-13) BUN < 5 L (6-20) mg/dL Creatinine 0.6 (0.4-1.0) mg/dL Estimated GFR (MDRD) 114 (>89) Glucose 102 H (70-100) mg/dL Calcium 7.9 L (8.5-10.3) mg/dL C-Reactive Protein 8.9 H (0-1.0) mg/dL Last Dose Date UNK Last Dose Time UNK Vancomycin Trough 9.7 L (10.0-20.0) ug/mL 09/22/19 Range/Units 05:00 WBC 6.3 (4.8-10.8) x10^3/uL RBC 3.38 L (4.20-5.40) 10^6/uL Hgb 9.8 L (12.0-16.0) g/dL Hct 31.4 L (37.0-47.0) % MCV 92.9 (81.0-99.0) fL MCH 29.0 (27.0-31.0) pg MCHC 31.2 L (32.0-36.0) g/dL RDW 12.9 (12.0-15.0) % Plt Count 240 (130-450) 10^3/uL MPV 9.3 (7.9-10.8) fL Sodium (135-145) mmol/L Potassium (3.5-5.0) mmol/L Chloride (101-111) mmol/L Carbon Dioxide (21-32) mmol/L Anion Gap (6-13) BUN (6-20) mg/dL Creatinine (0.4-1.0) mg/dL Estimated GFR (MDRD) (>89) Glucose (70-100) mg/dL Calcium (8.5-10.3) mg/dL C-Reactive Protein (0-1.0) mg/dL Last Dose Date Last Dose Time Vancomycin Trough (10.0-20.0) ug/mL - Current Medications Current Medications: Current Medications Generic Name Dose Route Start Last Admin Trade Name Freq PRN Reason Stop Dose Admin Acetaminophen 650 mg 09/21/19 21:55 09/22/19 08:38 Tylenol PO 650 mg Q4HR PRN Administration Pain or Fever > 38C (100.4F) Hydrocodone Bitart/Acetaminophen 1 tab 09/21/19 09:21 09/22/19 10:27 Diana 7.5/325 PO 1 tab Q4HR PRN Administration PAIN Docusate Sodium 250 - 500 mg 09/22/19 09:00 09/22/19 08:09 Colace 250mg Capsule PO 500 mg DAILY TSERING Administration Enoxaparin Sodium 40 mg 09/22/19 09:00 09/22/19 08:11 Lovenox SUBQ 40 mg DAILY TSERING Administration Hydromorphone HCl 1 mg 09/21/19 02:25 09/22/19 08:10 Dilaudid Inj Carp IVP 1 mg Q2HR PRN Administration PAIN Piperacillin Sod/Tazobactam 100 mls @ 200 mls/hr 09/21/19 06:00 09/22/19 07:01 Sod 3.375 gm/ Sodium Chloride IV Infused Q6HR TSERING Infusion Ondansetron HCl 4 mg 09/21/19 02:15 09/22/19 08:19 Zofran Inj IVP 4 mg Q6HR PRN Administration Nausea / Vomiting Pantoprazole Sodium 40 mg 09/21/19 07:00 09/22/19 05:58 Protonix PO 40 mg QDAC TSERING Administration Polyethylene Glycol 17 gm 09/22/19 09:00 09/22/19 08:10 Miralax PO 17 gm DAILY TSERING Administration Sodium Chloride 10 ml 09/21/19 09:00 09/22/19 08:11 Normal Saline Flush 0.9% IVP 10 ml 0100,0900,1700 TSERING Administration - Physical Exam Comments/Other: AAO, NAD, morbidly obese EOMI, MMM unlabored RA soft, nt/nd extensive moderate cellulitis along right perivulvar and perineal area, 1cm opening with iodoform tape packing Impression/Plan - Problem List Problem List: Cellulitis & perivulvar phlegmon - on IV abx, still large area of reportedly improved cellulitis - small area of I&D --> daily packing, will discuss wound care prior to d/c in coming days - ambulate, OOB
[2019-09-22] MEDS: VANCOMYCIN INJ 1 GM, VANCOMYCIN INJ 500 MG in SODIUM CHLORIDE 0.9% 500 ML IV SCH ×2 (12:57→20:30)
--- NOTE | 2019-09-22 13:44 | PROVIDER PROGRESS NOTE ---
Assessment/Plan - Problem List (1) Cellulitis of labia majora Assessment/Plan: pt report she feel better, her pain, nausea and appetite are better. pt had s/p of I/D drainage with surgeon on yesterday. pt has no fever on today. blood culture is negative for bacteremia continue antibiotics Zosyn and Vancomycin, followup surgeon continue pain control (2) Cellulitis of perianal region Conclusion/Plan: 09/21 erythema is still there but reduced from yesterday. pt has no fever on today, blood culture is negative for bacteremia continue antibiotics treatment. (3) Tachycardia Conclusion/Plan: 09/21 HR is around 95-1-5, is better controlled. continue pain control, and continue antibiotics treatment. (4) Morbid obesity Conclusion/Plan: discussed with pt about weight loss, pt understood. - Current Meds Current Meds: Current Medications Generic Name Dose Route Start Last Admin Trade Name Freq PRN Reason Stop Dose Admin Acetaminophen 650 mg 09/21/19 21:55 09/22/19 08:38 Tylenol PO 650 mg Q4HR PRN Administration Pain or Fever > 38C (100.4F) Hydrocodone Bitart/Acetaminophen 1 tab 09/21/19 09:21 09/22/19 10:27 [place] 7.5/325 PO 1 tab Q4HR PRN Administration PAIN Docusate Sodium 250 - 500 mg 09/22/19 09:00 09/22/19 08:09 Colace 250mg Capsule PO 500 mg DAILY [facility] Administration Enoxaparin Sodium 40 mg 09/22/19 09:00 09/22/19 08:11 Lovenox SUBQ 40 mg DAILY [facility] Administration Hydromorphone HCl 1 mg 09/21/19 02:25 09/22/19 12:57 Dilaudid Inj Carp IVP 1 mg Q2HR PRN Administration PAIN Piperacillin Sod/Tazobactam 100 mls @ 200 mls/hr 09/21/19 06:00 09/22/19 12:22 Sod 3.375 gm/ Sodium Chloride IV Infused Q6HR [facility] Infusion Vancomycin HCl 1 gm/ 500 mls @ 250 mls/hr 09/22/19 13:00 09/22/19 12:57 Vancomycin HCl 500 mg/ Sodium IV 250 mls/hr Chloride Q8H [facility] Administration Ondansetron HCl 4 mg 09/21/19 02:15 09/22/19 08:19 Zofran Inj IVP 4 mg Q6HR PRN Administration Nausea / Vomiting Pantoprazole Sodium 40 mg 09/21/19 07:00 09/22/19 05:58 Protonix PO 40 mg QDAC [facility] Administration Polyethylene Glycol 17 gm 09/22/19 09:00 09/22/19 08:10 Miralax PO 17 gm DAILY [facility] Administration Sodium Chloride 10 ml 09/21/19 09:00 09/22/19 08:11 Normal Saline Flush 0.9% IVP 10 ml 0100,0900,1700 [facility] Administration - Lab Result Fish Bone Diagrams: 09/22/19 05:00 09/22/19 05:00 - Additional Planning My Orders: My Active Orders 09/22/19 09:00 Enoxaparin [Lovenox] 40 mg SUBQ DAILY 09/23/19 05:00 CRP - C-REACTIVE PROTEIN [CHEM] DAILYLAB 09/24/19 05:00 CRP - C-REACTIVE PROTEIN [CHEM] DAILYLAB 09/25/19 05:00 CRP - C-REACTIVE PROTEIN [CHEM] DAILYLAB 09/26/19 05:00 CRP - C-REACTIVE PROTEIN [CHEM] DAILYLAB 09/27/19 05:00 CRP - C-REACTIVE PROTEIN [CHEM] DAILYLAB Subjective - Subjective Patient Reports: Feeling Better Objective Vital Signs: Vital Signs - 24 hr 09/21/19 09/21/19 09/21/19 14:05 15:40 20:33 Temperature 37.3 C 36.7 C 37.2 C Heart Rate Heart Rate [ 107 H 105 H 110 H Brachial] Respiratory 16 20 19 Rate Blood Pressure 113/60 129/73 [Left Brachial artery] Blood Pressure 108/73 [Right Brachial artery] O2 Saturation 94 99 99 09/21/19 09/21/19 09/22/19 21:35 22:45 00:15 Temperature 37.8 C H 37.2 C 35.9 C L Heart Rate Heart Rate [ 108 H 108 H Brachial] Respiratory 21 16 Rate Blood Pressure 125/70 [Left Brachial artery] Blood Pressure 116/62 [Right Brachial artery] O2 Saturation 99 96 09/22/19 09/22/19 07:40 10:16 Temperature 37.1 C 37.1 C Heart Rate 103 H Heart Rate [ 95 Brachial] Respiratory 16 16 Rate Blood Pressure [Left Brachial artery] Blood Pressure 109/68 [Right Brachial artery] O2 Saturation 95 96 Oxygen O2 Source Room air I&O (Last 24 Hrs): Intake and Output Totals x24h 09/20/19 09/21/19 09/22/19 23:59 23:59 23:59 Intake Total 5046.667 2301.666 Output Total 200 Balance 4846.667 2301.666 General: Alert, No acute distress HEENT: Atraumatic Neck: Supple Lymphatic: no adenopathy Neuro: Alert, Non Focal, Oriented Times 3 Cardiovascular: Regular rate, Normal S1, Normal S2 Respiratory: Chest non-tender, No respiratory distress, Breath sounds nml Abdomen: Normal bowel sounds, Soft Extremities: Normal pulses - Results Results: Laboratory Results WBC 6.3 x10^3/uL (4.8-10.8) 09/22/19 05:00 RBC 3.38 10^6/uL (4.20-5.40) L 09/22/19 05:00 Hgb 9.8 g/dL (12.0-16.0) L 09/22/19 05:00 Hct 31.4 % (37.0-47.0) L 09/22/19 05:00 MCV 92.9 fL (81.0-99.0) 09/22/19 05:00 MCH 29.0 pg (27.0-31.0) 09/22/19 05:00 MCHC 31.2 g/dL (32.0-36.0) L 09/22/19 05:00 RDW 12.9 % (12.0-15.0) 09/22/19 05:00 Plt Count 240 10^3/uL (130-450) 09/22/19 05:00 MPV 9.3 fL (7.9-10.8) 09/22/19 05:00 Neut # (Auto) 7.3 10^3/uL (1.5-6.6) H 09/20/19 22:50 Lymph # (Auto) 2.0 10^3/uL (1.5-3.5) 09/20/19 22:50 [place] # (Auto) 0.6 10^3/uL (0.0-1.0) 09/20/19 22:50 Eos # (Auto) 0.2 10^3/uL (0.0-0.7) 09/20/19 22:50 Baso # (Auto) 0.1 10^3/uL (0.0-0.1) 09/20/19 22:50 Absolute Nucleated RBC 0.00 x10^3/uL 09/20/19 22:50 Nucleated RBC % 0.0 /100WBC 09/20/19 22:50 Sodium 136 mmol/L (135-145) 09/22/19 05:00 Potassium 3.8 mmol/L (3.5-5.0) 09/22/19 05:00 Chloride 104 mmol/L (101-111) 09/22/19 05:00 Carbon Dioxide 25 mmol/L (21-32) 09/22/19 05:00 Anion Gap 7.0 (6-13) 09/22/19 05:00 BUN < 5 mg/dL (6-20) L 09/22/19 05:00 Creatinine 0.6 mg/dL (0.4-1.0) 09/22/19 05:00 Estimated GFR (MDRD) 114 (>89) 09/22/19 05:00 Glucose 102 mg/dL (70-100) H 09/22/19 05:00 Lactic Acid 1.5 mmol/L (0.5-2.2) 09/20/19 22:50 Calcium 7.9 mg/dL (8.5-10.3) L 09/22/19 05:00 Total Bilirubin 0.3 mg/dL (0.2-1.0) 09/20/19 22:50 AST 38 IU/L (10-42) 09/20/19 22:50 ALT 49 IU/L (10-60) 09/20/19 22:50 Alkaline Phosphatase 106 IU/L (42-121) 09/20/19 22:50 C-Reactive Protein 8.9 mg/dL (0-1.0) H 09/22/19 05:00 Total Protein 8.0 g/dL (6.7-8.2) 09/20/19 22:50 Albumin 3.9 g/dL (3.2-5.5) 09/20/19 22:50 Globulin 4.1 g/dL (2.1-4.2) 09/20/19 22:50 Albumin/Globulin Ratio 1.0 (1.0-2.2) 09/20/19 22:50 Lipase 20 U/L (22-51) L 09/20/19 22:50 Urine Color YELLOW 09/20/19 23:02 Urine Clarity CLEAR (CLEAR) 09/20/19 23:02 Urine pH 6.0 PH (5.0-7.5) 09/20/19 23:02 Ur Specific [place] 1.020 (1.002-1.030) 09/20/19 23:02 Urine Protein NEGATIVE mg/dL (NEGATIVE) 09/20/19 23:02 Urine Glucose (UA) NEGATIVE mg/dL (NEGATIVE) 09/20/19 23:02 Urine Ketones NEGATIVE mg/dL (NEGATIVE) 09/20/19 23:02 Urine Occult Blood TRACE-INTA (NEGATIVE) 09/20/19 23: Urine Nitrite NEGATIVE (NEGATIVE) 09/20/19 23:02 Urine Bilirubin NEGATIVE (NEGATIVE) 09/20/19 23:02 Urine Urobilinogen 0.2 (NORMAL) E.U./dL (NORMAL) 09/20/19 23:02 Ur Leukocyte Esterase TRACE (NEGATIVE) H 09/20/19 23:02 Urine RBC 0-5 /HPF (0-5) 09/20/19 23:02 Urine WBC 0-3 /HPF (0-5) 09/20/19 23:02 Ur Squamous Epith Cells MOD Squamous (<= Few) H 09/20/19 23:02 Urine Bacteria Few /HPF (None Seen) 09/20/19 23:02 Ur Microscopic Review INDICATED 09/20/19 23:02 Urine Culture Comments NOT INDICATED 09/20/19 23: Urine HCG, Qual NEGATIVE 09/20/19 23:02 Last Dose Date UNK 09/22/19 10:30 Last Dose Time UNK 09/22/19 10:30 Vancomycin Trough 9.7 ug/mL (10.0-20.0) L 09/22/19 10:30 Sepsis Event Note (H) - Evaluation Current Stage of Sepsis: Ruled out (Normal white cell count, no fever, lactic acid is normal) ABX Reporting Has patient been on IV antibiotics over the past 48 hours?: Yes Current Medications - Current Medications Current Medications: Active Medications Acetaminophen (Tylenol) 650 mg PO Q4HR PRN PRN Reason: Pain or Fever > 38C (100.4F) Last Admin: 09/22/19 08:38 Dose: 650 mg Hydrocodone Bitart/Acetaminophen ([place] 7.5/325) 1 tab PO Q4HR PRN PRN Reason: PAIN Last Admin: 09/22/19 10:27 Dose: 1 tab Docusate Sodium (Colace 250mg Capsule) 250 - 500 mg PO DAILY [facility] Last Admin: 09/22/19 08:09 Dose: 500 mg Enoxaparin Sodium (Lovenox) 40 mg SUBQ DAILY [facility] Last Admin: 09/22/19 08:11 Dose: 40 mg Hydromorphone HCl (Dilaudid Inj Carp) 1 mg IVP Q2HR PRN PRN Reason: PAIN Last Admin: 09/22/19 12:57 Dose: 1 mg Piperacillin Sod/Tazobactam (Sod 3.375 gm/ Sodium Chloride) 100 mls @ 200 mls/hr IV Q6HR [facility] Last Infusion: 09/22/19 12:22 Dose: Infused Vancomycin HCl 1 gm/Vancomycin HCl 500 mg/ Sodium Chloride 500 mls @ 250 mls/hr IV Q8H [facility] Last Admin: 09/22/19 12:57 Dose: 250 mls/hr Ondansetron HCl (Zofran Inj) 4 mg IVP Q6HR PRN PRN Reason: Nausea / Vomiting Last Admin: 09/22/19 08:19 Dose: 4 mg Pantoprazole Sodium (Protonix) 40 mg PO QDAC [facility] Last Admin: 09/22/19 05:58 Dose: 40 mg Polyethylene Glycol (Miralax) 17 gm PO DAILY [facility] Last Admin: 09/22/19 08:10 Dose: 17 gm Prochlorperazine Edisylate (Compazine Inj) 10 mg IVP Q6HR PRN PRN Reason: Nausea / Vomiting Sodium Chloride (Normal Saline Flush 0.9%) 10 ml IVP PRN PRN PRN Reason: NEEDED PER PROVIDER ORDERS Sodium Chloride (Normal Saline Flush 0.9%) 10 ml IVP 0100,0900,1700 [facility] Last Admin: 09/22/19 08:11 Dose: 10 ml No Known Home Medications 09/21/19
[2019-09-22] MEDS ORDERED: TEMAZEPAM 15 MG CAPSULE PO PRN (15:42)
[2019-09-22] MEDS: SODIUM CHLORIDE FLUSH 0.9% 10 ML SYRINGE IVP PRN ×2 (19:47→20:30)
[2019-09-23] MEDS: SODIUM CHLORIDE FLUSH 0.9% 10 ML SYRINGE IVP SCH ×3 (00:26→12:29)
[2019-09-23] MEDS: PIPERACILLIN/TAZOBACTAM 3.375 GM in SODIUM CHLORIDE 0.9% MINIBAG 100 ML IV SCH ×4 (00:26→18:03)
[2019-09-23] MEDS: HYDROcod/ACETAM 7.5 MG/325 MG TABLET PO PRN ×6 (00:35→22:20)
[2019-09-23] MEDS: VANCOMYCIN INJ 1 GM, VANCOMYCIN INJ 500 MG in SODIUM CHLORIDE 0.9% 500 ML IV SCH ×3 (04:37→20:58)
[2019-09-23 05:42] LABS: HGB - HEMOGLOBIN 9.3 g/dL (12.0-16.0); MEAN CORPUSCULAR HEMOGLOBIN 29.5 pg (27.0-31.0); MEAN CORPUSCULAR HGB CONC 32.4 g/dL (32.0-36.0); MEAN CORPUSCULAR VOLUME 91.1 fL (81.0-99.0); MEAN PLATELET VOLUME 8.9 fL (7.9-10.8); RED BLOOD COUNT 3.15 10^6/uL (4.20-5.40); RED CELL DISTRIBUTION WIDTH 12.9 % (12.0-15.0); WHITE BLOOD COUNT 5.4 x10^3/uL (4.8-10.8)
[2019-09-23 06:01] LABS: BUN - BLOOD UREA NITROGEN < 5 mg/dL (6-20); CALCIUM 8.2 mg/dL (8.5-10.3); CARBON DIOXIDE - CO2 25 mmol/L (21-32); CHLORIDE 107 mmol/L (101-111); CREATININE 0.6 mg/dL (0.4-1.0); CRP - C-REACTIVE PROTEIN 6.2 mg/dL (0-1.0); GLUCOSE 103 mg/dL (70-100); SODIUM 141 mmol/L (135-145)
[2019-09-23] MEDS: PANTOPRAZOLE 40 MG TABLET PO SCH (06:54)
[2019-09-23] MEDS: DOCUSATE SODIUM 250 MG CAPSULE PO SCH (09:48)
[2019-09-23] MEDS: polyethylene glycoL 3350 17 GM PACKET PO SCH (09:48)
[2019-09-23] MEDS: ENOXAPARIN 40 MG/0.4 ML SYRINGE SUBQ SCH (09:49)
--- NOTE | 2019-09-23 10:46 | PROVIDER PROGRESS NOTE ---
Assessment/Plan - Problem List (1) Cellulitis of labia majora Assessment/Plan: 09/22 improved. erythema is reduced, swelling is reduced continue antibiotics, lab monitor pt report she feel better, her pain, nausea and appetite are better. pt had s/p of I/D drainage with surgeon on yesterday. pt has no fever on today. blood culture is negative for bacteremia continue antibiotics Zosyn and Vancomycin, followup surgeon continue pain control (2) abscess of perianal region Conclusion/Plan: 09/22 pt still complain of pain and tenderness on perianal area. pt had I/D on one area, and nurse change the dressing. Order US to check the tenderness area to see if any fluid collection at the area. discussed with surgeon again, if positive for abscess, will notify surgeon. 09/21 erythema is still there but reduced from yesterday. pt has no fever on today, blood culture is negative for bacteremia continue antibiotics treatment. (3) Tachycardia Conclusion/Plan: 09/22 resolved. 09/21 HR is around 95-1-5, is better controlled. continue pain control, and continue antibiotics treatment. (4) Morbid obesity Conclusion/Plan: discussed with pt about weight loss, pt understood. - Current Meds Current Meds: Current Medications Generic Name Dose Route Start Last Admin Trade Name Freq PRN Reason Stop Dose Admin Acetaminophen 650 mg 09/21/19 21:55 09/22/19 16:34 Tylenol PO 650 mg Q4HR PRN Administration Pain or Fever > 38C (100.4F) Hydrocodone Bitart/Acetaminophen 1 tab 09/21/19 09:21 09/23/19 09:51 [place] 7.5/325 PO 1 tab Q4HR PRN Administration PAIN Docusate Sodium 250 - 500 mg 09/22/19 09:00 09/23/19 09:48 Colace 250mg Capsule PO 250 mg DAILY [facility] Administration Enoxaparin Sodium 40 mg 09/22/19 09:00 09/23/19 09:49 Lovenox SUBQ 40 mg DAILY [facility] Administration Hydromorphone HCl 1 mg 09/21/19 02:25 09/22/19 19:47 Dilaudid Inj Carp IVP 1 mg Q2HR PRN Administration PAIN Piperacillin Sod/Tazobactam 100 mls @ 200 mls/hr 09/21/19 06:00 09/23/19 06:53 Sod 3.375 gm/ Sodium Chloride IV 200 mls/hr Q6HR [facility] Administration Vancomycin HCl 1 gm/ 500 mls @ 250 mls/hr 09/22/19 13:00 09/23/19 04:37 Vancomycin HCl 500 mg/ Sodium IV 250 mls/hr Chloride Q8H [facility] Administration Ondansetron HCl 4 mg 09/21/19 02:15 09/22/19 16:16 Zofran Inj IVP 4 mg Q6HR PRN Administration Nausea / Vomiting Pantoprazole Sodium 40 mg 09/21/19 07:00 09/23/19 06:54 Protonix PO 40 mg QDAC [facility] Administration Polyethylene Glycol 17 gm 09/22/19 09:00 09/23/19 09:48 Miralax PO 17 gm DAILY [facility] Administration Prochlorperazine Edisylate 10 mg 09/21/19 02:15 09/22/19 20:30 Compazine Inj IVP 10 mg Q6HR PRN Administration Nausea / Vomiting Sodium Chloride 10 ml 09/21/19 02:15 09/22/19 20:30 Normal Saline Flush 0.9% IVP 10 ml PRN PRN Administration NEEDED PER PROVIDER ORDERS Sodium Chloride 10 ml 09/21/19 09:00 09/23/19 04:37 Normal Saline Flush 0.9% IVP 10 ml 0100,0900,1700 [facility] Administration - Lab Result Fish Bone Diagrams: 09/23/19 05:36 09/23/19 05:36 - Additional Planning My Orders: My Active Orders 09/22/19 15:42 Temazepam [Restoril] 15 mg PO QPM PRN 09/23/19 10:42 Retroperitoneal Limited [US] Routine 09/24/19 05:00 CRP - C-REACTIVE PROTEIN [CHEM] DAILYLAB 09/25/19 05:00 CRP - C-REACTIVE PROTEIN [CHEM] DAILYLAB 09/26/19 05:00 CRP - C-REACTIVE PROTEIN [CHEM] DAILYLAB 09/27/19 05:00 CRP - C-REACTIVE PROTEIN [CHEM] DAILYLAB Subjective - Subjective Patient Reports: Feeling Better Objective Vital Signs: Vital Signs - 24 hr 09/22/19 09/23/19 09/23/19 16:00 00:00 08:00 Temperature 37.0 C 36.6 C 37.2 C Heart Rate [ 94 97 85 Brachial] Respiratory 20 20 18 Rate Blood Pressure 127/75 116/78 113/59 L [Right Brachial artery] O2 Saturation 98 94 95 Oxygen O2 Source Room air I&O (Last 24 Hrs): Intake and Output Totals x24h 09/21/19 09/22/19 09/23/19 23:59 23:59 23:59 Intake Total 5046.667 5521.666 1200 Output Total 200 250 1 Balance 4846.667 5271.666 1199 General: Alert, No acute distress HEENT: Atraumatic Neck: Supple Lymphatic: no adenopathy Neuro: Alert, Non Focal, Oriented Times 3 Cardiovascular: Regular rate, Normal S1, Normal S2 Respiratory: Chest non-tender, No respiratory distress, Breath sounds nml Abdomen: Normal bowel sounds, Soft Extremities: Normal pulses - Results Results: Laboratory Results WBC 5.4 x10^3/uL (4.8-10.8) 09/23/19 05:36 RBC 3.15 10^6/uL (4.20-5.40) L 09/23/19 05:36 Hgb 9.3 g/dL (12.0-16.0) L 09/23/19 05:36 Hct 28.7 % (37.0-47.0) L 09/23/19 05:36 MCV 91.1 fL (81.0-99.0) 09/23/19 05:36 MCH 29.5 pg (27.0-31.0) 09/23/19 05:36 MCHC 32.4 g/dL (32.0-36.0) 09/23/19 05:36 RDW 12.9 % (12.0-15.0) 09/23/19 05:36 Plt Count 232 10^3/uL (130-450) 09/23/19 05:36 MPV 8.9 fL (7.9-10.8) 09/23/19 05:36 Neut # (Auto) 7.3 10^3/uL (1.5-6.6) H 09/20/19 22:50 Lymph # (Auto) 2.0 10^3/uL (1.5-3.5) 09/20/19 22:50 [place] # (Auto) 0.6 10^3/uL (0.0-1.0) 09/20/19 22:50 Eos # (Auto) 0.2 10^3/uL (0.0-0.7) 09/20/19 22:50 Baso # (Auto) 0.1 10^3/uL (0.0-0.1) 09/20/19 22:50 Absolute Nucleated RBC 0.00 x10^3/uL 09/20/19 22:50 Nucleated RBC % 0.0 /100WBC 09/20/19 22:50 Sodium 141 mmol/L (135-145) 09/23/19 05:36 Potassium 3.9 mmol/L (3.5-5.0) 09/23/19 05:36 Chloride 107 mmol/L (101-111) 09/23/19 05:36 Carbon Dioxide 25 mmol/L (21-32) 09/23/19 05:36 Anion Gap 9.0 (6-13) 09/23/19 05:36 BUN < 5 mg/dL (6-20) L 09/23/19 05:36 Creatinine 0.6 mg/dL (0.4-1.0) 09/23/19 05:36 Estimated GFR (MDRD) 114 (>89) 09/23/19 05:36 Glucose 103 mg/dL (70-100) H 09/23/19 05:36 Lactic Acid 1.5 mmol/L (0.5-2.2) 09/20/19 22:50 Calcium 8.2 mg/dL (8.5-10.3) L 09/23/19 05:36 Total Bilirubin 0.3 mg/dL (0.2-1.0) 09/20/19 22:50 AST 38 IU/L (10-42) 09/20/19 22:50 ALT 49 IU/L (10-60) 09/20/19 22:50 Alkaline Phosphatase 106 IU/L (42-121) 09/20/19 22:50 C-Reactive Protein 6.2 mg/dL (0-1.0) H 09/23/19 05:36 Total Protein 8.0 g/dL (6.7-8.2) 09/20/19 22:50 Albumin 3.9 g/dL (3.2-5.5) 09/20/19 22:50 Globulin 4.1 g/dL (2.1-4.2) 09/20/19 22:50 Albumin/Globulin Ratio 1.0 (1.0-2.2) 09/20/19 22:50 Lipase 20 U/L (22-51) L 09/20/19 22:50 Urine Color YELLOW 09/20/19 23:02 Urine Clarity CLEAR (CLEAR) 09/20/19 23:02 Urine pH 6.0 PH (5.0-7.5) 09/20/19 23:02 Ur Specific [place] 1.020 (1.002-1.030) 09/20/19 23:02 Urine Protein NEGATIVE mg/dL (NEGATIVE) 09/20/19 23:02 Urine Glucose (UA) NEGATIVE mg/dL (NEGATIVE) 09/20/19 23:02 Urine Ketones NEGATIVE mg/dL (NEGATIVE) 09/20/19 23:02 Urine Occult Blood TRACE-INTA (NEGATIVE) 09/20/19 23:02 Urine Nitrite NEGATIVE (NEGATIVE) 09/20/19 23:02 Urine Bilirubin NEGATIVE (NEGATIVE) 09/20/19 23:02 Urine Urobilinogen 0.2 (NORMAL) E.U./dL (NORMAL) 09/20/19 23:02 Ur Leukocyte Esterase TRACE (NEGATIVE) H 09/20/19 23:02 Urine RBC 0-5 /HPF (0-5) 09/20/19 23:02 Urine WBC 0-3 /HPF (0-5) 09/20/19 23:02 Ur Squamous Epith Cells MOD Squamous (<= Few) H 09/20/19 23:02 Urine Bacteria Few /HPF (None Seen) 09/20/19 23:02 Ur Microscopic Review INDICATED 09/20/19 23:02 Urine Culture Comments NOT INDICATED 09/20/19 23: Urine HCG, Qual NEGATIVE 09/20/19 23:02 Last Dose Date UNK 09/22/19 10:30 Last Dose Time UNK 09/22/19 10:30 Vancomycin Trough 9.7 ug/mL (10.0-20.0) L 09/22/19 10:30 Sepsis Event Note (H) - Evaluation Current Stage of Sepsis: Ruled out (Normal white cell count, no fever, lactic acid is normal) ABX Reporting Has patient been on IV antibiotics over the past 48 hours?: Yes Current Medications - Current Medications Current Medications: Active Medications Acetaminophen (Tylenol) 650 mg PO Q4HR PRN PRN Reason: Pain or Fever > 38C (100.4F) Last Admin: 09/22/19 16:34 Dose: 650 mg Hydrocodone Bitart/Acetaminophen ([place] 7.5/325) 1 tab PO Q4HR PRN PRN Reason: PAIN Last Admin: 09/23/19 09:51 Dose: 1 tab Docusate Sodium (Colace 250mg Capsule) 250 - 500 mg PO DAILY [facility] Last Admin: 09/23/19 09:48 Dose: 250 mg Enoxaparin Sodium (Lovenox) 40 mg SUBQ DAILY [facility] Last Admin: 09/23/19 09:49 Dose: 40 mg Hydromorphone HCl (Dilaudid Inj Carp) 1 mg IVP Q2HR PRN PRN Reason: PAIN Last Admin: 09/22/19 19:47 Dose: 1 mg Piperacillin Sod/Tazobactam (Sod 3.375 gm/ Sodium Chloride) 100 mls @ 200 mls/hr IV Q6HR [facility] Last Admin: 09/23/19 06:53 Dose: 200 mls/hr Vancomycin HCl 1 gm/Vancomycin HCl 500 mg/ Sodium Chloride 500 mls @ 250 mls/hr IV Q8H [facility] Last Admin: 09/23/19 04:37 Dose: 250 mls/hr Ondansetron HCl (Zofran Inj) 4 mg IVP Q6HR PRN PRN Reason: Nausea / Vomiting Last Admin: 09/22/19 16:16 Dose: 4 mg Pantoprazole Sodium (Protonix) 40 mg PO QDAC [facility] Last Admin: 09/23/19 06:54 Dose: 40 mg Polyethylene Glycol (Miralax) 17 gm PO DAILY [facility] Last Admin: 09/23/19 09:48 Dose: 17 gm Prochlorperazine Edisylate (Compazine Inj) 10 mg IVP Q6HR PRN PRN Reason: Nausea / Vomiting Last Admin: 09/22/19 20:30 Dose: 10 mg Sodium Chloride (Normal Saline Flush 0.9%) 10 ml IVP PRN PRN PRN Reason: NEEDED PER PROVIDER ORDERS Last Admin: 09/22/19 20:30 Dose: 10 ml Sodium Chloride (Normal Saline Flush 0.9%) 10 ml IVP 0100,0900,1700 [facility] Last Admin: 09/23/19 04:37 Dose: 10 ml Temazepam (Restoril) 15 mg PO QPM PRN PRN Reason: Insomnia No Known Home Medications 09/21/19
--- NOTE | 2019-09-23 10:54 | PROVIDER PROGRESS NOTE ---
Subjective - General Admit Date: 09/21/19 Procedure Date: 09/21/19 Post Op Days: 2 Procedure Performed: I&D of perivulvar phlegmon - Other Other Information/Narrative: Better overall, just finished packing change. Cellulitis improving but still present. Objective - Patient Data Reviewed Vital Signs: Yes Vital Signs: Vital Signs x48h Temp Pulse Resp BP Pulse Ox 09/23/19 08:00 37.2 C 85 18 113/59 L 95 Weight: Weight 09/21/19 09/22/19 09/23/19 23:59 23:59 23:59 Weight (kg) 174.6 kg Intake & Output: Intake and Output Totals x24h 09/21/19 09/22/19 09/23/19 23:59 23:59 23:59 Intake Total 5046.667 5521.666 1200 Output Total 200 250 1 Balance 4846.667 5271.666 1199 - Lab Results Lab Results: 09/23/19 05:36 09/23/19 05:36 Other Lab Results: Lab Results x24hrs 09/23/19 09/23/19 09/22/19 Range/Units 05:36 05:36 10:30 WBC 5.4 (4.8-10.8) x10^3/uL RBC 3.15 L (4.20-5.40) 10^6/uL Hgb 9.3 L (12.0-16.0) g/dL Hct 28.7 L (37.0-47.0) % MCV 91.1 (81.0-99.0) fL MCH 29.5 (27.0-31.0) pg MCHC 32.4 (32.0-36.0) g/dL RDW 12.9 (12.0-15.0) % Plt Count 232 (130-450) 10^3/uL MPV 8.9 (7.9-10.8) fL Sodium 141 (135-145) mmol/L Potassium 3.9 (3.5-5.0) mmol/L Chloride 107 (101-111) mmol/L Carbon Dioxide 25 (21-32) mmol/L Anion Gap 9.0 (6-13) BUN < 5 L (6-20) mg/dL Creatinine 0.6 (0.4-1.0) mg/dL Estimated GFR (MDRD) 114 (>89) Glucose 103 H (70-100) mg/dL Calcium 8.2 L (8.5-10.3) mg/dL C-Reactive Protein 6.2 H (0-1.0) mg/dL Last Dose Date UNK Last Dose Time UNK - Current Medications Current Medications: Current Medications Generic Name Dose Route Start Last Admin Trade Name Freq PRN Reason Stop Dose Admin Acetaminophen 650 mg 09/21/19 21:55 09/22/19 16:34 Tylenol PO 650 mg Q4HR PRN Administration Pain or Fever > 38C (100.4F) Hydrocodone Bitart/Acetaminophen 1 tab 09/21/19 09:21 09/23/19 09:51 [place] 7.5/325 PO 1 tab Q4HR PRN Administration PAIN Docusate Sodium 250 - 500 mg 09/22/19 09:00 09/23/19 09:48 Colace 250mg Capsule PO 250 mg DAILY [facility] Administration Enoxaparin Sodium 40 mg 09/22/19 09:00 09/23/19 09:49 Lovenox SUBQ 40 mg DAILY [facility] Administration Hydromorphone HCl 1 mg 09/21/19 02:25 09/22/19 19:47 Dilaudid Inj Carp IVP 1 mg Q2HR PRN Administration PAIN Piperacillin Sod/Tazobactam 100 mls @ 200 mls/hr 09/21/19 06:00 09/23/19 06:53 Sod 3.375 gm/ Sodium Chloride IV 200 mls/hr Q6HR [facility] Administration Vancomycin HCl 1 gm/ 500 mls @ 250 mls/hr 09/22/19 13:00 09/23/19 04:37 Vancomycin HCl 500 mg/ Sodium IV 250 mls/hr Chloride Q8H [facility] Administration Ondansetron HCl 4 mg 09/21/19 02:15 09/22/19 16:16 Zofran Inj IVP 4 mg Q6HR PRN Administration Nausea / Vomiting Pantoprazole Sodium 40 mg 09/21/19 07:00 09/23/19 06:54 Protonix PO 40 mg QDAC [facility] Administration Polyethylene Glycol 17 gm 09/22/19 09:00 09/23/19 09:48 Miralax PO 17 gm DAILY [facility] Administration Prochlorperazine Edisylate 10 mg 09/21/19 02:15 04/23/20 20:30 Compazine Inj IVP 10 mg Q6HR PRN Administration Nausea / Vomiting Sodium Chloride 10 ml 09/21/19 02:15 09/22/19 20:30 Normal Saline Flush 0.9% IVP 10 ml PRN PRN Administration NEEDED PER PROVIDER ORDERS Sodium Chloride 10 ml 09/21/19 09:00 09/23/19 04:37 Normal Saline Flush 0.9% IVP 10 ml 0100,0900,1700 TSERING Administration - Physical Exam Comments/Other: AAO, NAD, morbidly obese EOMI, MMM unlabored RA soft, nt/nd extensive moderate cellulitis along right perivulvar and perineal area, 1cm opening with iodoform tape packing [per RN who changed packing, 1.5-2cm deep and minimal yellow drainage] Impression/Plan - Problem List Problem List: Cellulitis & perivulvar phlegmon - on IV abx, still large area of improving cellulitis --> US to assess for new abscess collection in persistent red and tender area - small area of I&D --> daily packing, pt will attempt change tomorrow and if too difficult will plan to do BID flushes at home - ambulate, OOB
[2019-09-23] MEDS: ONDANSETRON 4 MG/2 ML VIAL IVP PRN ×2 (12:29→23:06)
[2019-09-23] MEDS: HYDROmorphone 1 MG/ML CARPUJECT IVP PRN ×2 (12:29→14:50)
--- NOTE | 2019-09-23 14:35 | Ultrasound Report ---
Reason: groin area tenderness and pain, abscess? Procedure Date: 09/23/2019 Accession Number: [id number] / [id number] Procedure: US - Pelvic Limited or F/U CPT Code: Final Report FULL RESULT: EXAM: Limited abdominal/pelvic ultrasound EXAM DATE: 09/23/2019 11:15 AM. CLINICAL HISTORY: Groin area tenderness and pain, abscess?. COMPARISON: ABDOMEN/PELVIS W 09/21/2019 12:25 AM. TECHNIQUE: Real-time scanning was performed of the left labia and perineal space with static images obtained. FINDINGS: No abscess identified. There is subcutaneous edema, most prominent at the left perineal space. The subcutaneous fat appeared echogenic, suggesting inflammation or infection. Other: None. IMPRESSION: No abscess identified. Echogenic subcutaneous fat, suggesting inflammation or infection. RADIA
[2019-09-23] MEDS: SODIUM CHLORIDE FLUSH 0.9% 10 ML SYRINGE IVP PRN (14:50)
[2019-09-23] MEDS: ACETAMINOPHEN 325 MG TABLET PO PRN (15:50)
[2019-09-24] MEDS: PIPERACILLIN/TAZOBACTAM 3.375 GM in SODIUM CHLORIDE 0.9% MINIBAG 100 ML IV SCH ×3 (00:13→11:02)
[2019-09-24] MEDS: HYDROmorphone 1 MG/ML CARPUJECT IVP PRN ×3 (00:16→12:53)
[2019-09-24] MEDS: SODIUM CHLORIDE FLUSH 0.9% 10 ML SYRINGE IVP SCH ×2 (01:05→04:38)
[2019-09-24] MEDS: HYDROcod/ACETAM 7.5 MG/325 MG TABLET PO PRN ×4 (02:29→14:54)
[2019-09-24] MEDS ORDERED: SODIUM CHLORIDE 0.9% 500 ML ONE (04:02)
[2019-09-24] MEDS: VANCOMYCIN INJ 1 GM, VANCOMYCIN INJ 500 MG in SODIUM CHLORIDE 0.9% 500 ML IV SCH ×2 (04:36→12:51)
[2019-09-24] MEDS: PANTOPRAZOLE 40 MG TABLET PO SCH (06:48)
[2019-09-24] MEDS: ONDANSETRON 4 MG/2 ML VIAL IVP PRN ×2 (07:40→13:36)
[2019-09-24 09:06] VITALS: BP 129/84
[2019-09-24] MEDS: ENOXAPARIN 40 MG/0.4 ML SYRINGE SUBQ SCH (10:02)
[2019-09-24] MEDS: DOCUSATE SODIUM 250 MG CAPSULE PO SCH (10:02)
[2019-09-24] MEDS: polyethylene glycoL 3350 17 GM PACKET PO SCH (10:03)
--- NOTE | 2019-09-24 12:20 | Discharge Plan ---
Discharge Plan Problem Reviewed?: Yes Disposition: Home, Self Care Condition: Stable Prescriptions: HYDROcodone/ACET 7.5/325 [Julian 7.5/325] 1 tab PO Q4HR PRN #10 tablet PRN Reason: Pain clindamycin HCL [Clindamycin HCl] 300 mg PO BID #10 capsule Docusate Sodium 250Mg Capsule [Colace 250Mg Capsule] 250 mg PO DAILY #5 capsule polyethylene glycoL 3350 [Miralax] 17 gm PO DAILY #5 packet Saccharomyces Boulardii [Daily Probiotic] 250 mg PO DAILY #5 capsule Diet: Regular Shower Restrictions: No Driving Restrictions: No Instruction Topics: Wound Care, Wound Pack Dc Health Concerns: Admitted with cellulitis of the labia and perianal area. Incision and drainage was needed. Antibiotics were given and need to be completed. Care of the wound should be as per the surgeon. Plan of Treatment: Finish the course of antibiotics, with probiotics. Several tablets of narcotic pain medication were prescribed for you to use if needed. Avoid constipation therefore MiraLAX and docusate have been ordered for you. All new prescriptions were electronically sent to your pharmacy. Wash the wound twice a day with the saline syringes that were provided for you. Then pack the wound as best you can. See Dr. Naomi Swann, your surgeon, in her clinic on 09/28/19. Care Goals: Improvement in symptoms and stabilization are the goals. Assessment: Patient understands and is agreeable with the plan. Additional Instructions or Follow Up instructions: If you have new or worsening symptoms, call your PCP or your surgeon, Dr. Swann, for advice or come to the ER. No Smoking: If you smoke, Please STOP! Call for help. Follow-up with: Naomi Swann MD [Provider Admit Priv/Credential] -
--- NOTE | 2019-09-24 12:28 | DISCHARGE SUMMARY ---
"Discharge Summary Admit Date: 09/21/19 Discharge Date: 09/24/19 Discharging Provider: Dr Evangelina Mitchell Primary Care Provider: No PCP Condition at Discharge: Stable Discharge Disposition: 01 Home, Self Care - HPI History of Present Illness: From the admission H&P of Dr Zion Murphy: Patient is a healthy 34-year-old female with no significant past medical history who presents with a chief complaint pain, pain, burning in the genital and groin region.She states that her symptoms began on 09/15/2019, and she thought she had a yeast infection. She also developed dysuria around this time as well. She put up with it at home and tried some [id number] remedies including Monist at, but it did not improve so she presented to the emergency room on 09/17/2019. At this time, she was diagnosed presumptively with bacterial vaginosis and was discharged home on Bactrim. Since then, after going home it did not improve. She also became febrile and documented a T maximum of 102 F at home yesterday. She denied any vomiting, but did have some mild nausea. She also noted that the pain was spreading down the lower extremity, and of the left side and a burning sensation. She return to the emergency room for further evaluation, where a physical exam was done including a pelvic exam showing a significantly erythematous and edematous to left valvular region. A CT scan of the abdomen and pelvis was performed which showed perineal and perianal cellulitis with phlegmon. There was no notable abscess or cyst on the CT scan. Her white blood cell count was normal. She was afebrile emergency department. However, because she was felt to have failed outpatient antibiotics and because of the extent of the infection, hospital admission was requested. - CONSULTS | PROCEDURES Consultations: Dr Monica Santos and Dr Naomi Swann, Gen Surgeon Procedures: I&D of perineal area on 09/21/[address] Monica Santos - HOSPITAL COURSE Hospital Course: (1) Cellulitis of labia majora She was started on empiric iv Zosyn and iv Vancomycin, she underwent I&D by the surgeon and defervesced the following day and then reported feeling better with respect to pain, nausea and appetite. The blood cultures remained negative for bacteremia. She was sent home with prescriptions for oral Clindamycin, a probiotic, Greenup prn and Colace and Miralax to prevent constipation. She was to have clinic followup with the surgeon in 4 days. She was also advised to establish with a PCP. (2) Abscess of perineal region She underwent I&D by the general surgeon. Pain meds and antibiotics were given. On 09/23/19, the patient still complained of pain and tenderness in the perineal area. She had an ultrasound to check the area for any persistent abscess/fluid collection, which was negative. The area was cleaned and packed twice a day and the patient was taught how to do this herself and was sent home with several saline syringes. (3) Tachycardia This likely was related to pain and infection. The heart rate improved as the infection and pain were treated. (4) Morbid obesity As per Hx; she has a BMI of 58.5. - ALLERGIES Allergies/Adverse Reactions: Allergies Allergy/AdvReac Type Severity Reaction Status Date / Time ibuprofen Allergy Unknown Verified 09/20/19 22:04 - MEDICATIONS Home Medications: Ambulatory Orders Medication Instructions Recorded Confirmed Acetaminophen [Tylenol] 650 mg PO Q4HR PRN tablet 09/24/19 Docusate Sodium 250Mg Capsule 250 mg PO DAILY #5 capsule 09/24/19 [Colace 250Mg Capsule] HYDROcodone/ACET 7.5/325 [Greenup 1 tab PO Q4HR PRN #10 tablet 09/24/19 7.5/325] Saccharomyces Boulardii [Daily 250 mg PO DAILY #5 capsule 09/24/19 Probiotic] clindamycin HCL [Clindamycin HCl] 300 mg PO BID #10 capsule 09/24/19 polyethylene glycoL 3350 [Miralax] 17 gm PO DAILY #5 packet 09/24/19 - PHYSICAL EXAM AT DISCHARGE General Appearance: positive: No acute distress Eyes Bilateral: positive: Normal inspection, EOMI ENT: positive: No signs of dehydration Neck: positive: Nml inspection Respiratory: positive: No respiratory distress Cardiovascular: positive: Regular rate & rhythm Abdomen: positive: Non-tender, Other (Obese with a pannus) Rectal: positive: Other (Deferred) Skin: positive: Color nml Extremities: positive: No pedal edema Neurologic/Psychiatric: positive: Other (Non-focal) - LABS Result Diagrams: 09/23/19 05:36 09/23/19 05:36 - DIAGNOSTIC IMAGING Diagnostic Imaging Results: Final report reviewed - FOLLOW UP Follow Up: See Dr Swann (Gen Surgeon) in 4 days in the clinic. - TIME SPENT Time Spent in Discharge (Minutes): 55"
--- NOTE | 2019-09-24 12:29 | PROVIDER PROGRESS NOTE ---
Subjective - General Admit Date: 09/21/19 Procedure Date: 09/21/19 Post Op Days: 3 Procedure Performed: I&D of perivulvar phlegmon - Other Other Information/Narrative: Cellulitis continues to improve. Doing well. Ready for home. Objective - Patient Data Reviewed Vital Signs: Yes Vital Signs: Vital Signs x48h Temp Pulse Resp BP Pulse Ox 09/24/19 08:00 37 C 91 18 129/84 H 95 Intake & Output: Intake and Output Totals x24h 09/22/19 09/23/19 09/24/19 23:59 23:59 23:59 Intake Total 5521.666 3500 1160 Output Total 250 1 Balance 5271.666 3499 1160 - Lab Results Lab Results: 09/23/19 05:36 09/23/19 05:36 Other Lab Results: Lab Results x24hrs 09/24/19 09/23/19 Range/Units 04:30 13:22 C-Reactive Protein 3.1 H (0-1.0) mg/dL Last Dose Date 09/23/19 Last Dose Time 04:37 Vancomycin Trough 12.0 (10.0-20.0) ug/mL - Current Medications Current Medications: Current Medications Generic Name Dose Route Start Last Admin Trade Name Freq PRN Reason Stop Dose Admin Acetaminophen 650 mg 09/21/19 21:55 09/23/19 15:50 Tylenol PO 650 mg Q4HR PRN Administration Pain or Fever > 38C (100.4F) Hydrocodone Bitart/Acetaminophen 1 tab 09/21/19 09:21 09/24/19 10:57 Panther 7.5/325 PO 1 tab Q4HR PRN Administration PAIN Docusate Sodium 250 - 500 mg 09/22/19 09:00 09/24/19 10:02 Colace 250mg Capsule PO Not Given DAILY TSERING Enoxaparin Sodium 40 mg 09/22/19 09:00 09/24/19 10:02 Lovenox SUBQ Not Given DAILY TSERING Hydromorphone HCl 1 mg 09/21/19 02:25 09/24/19 07:40 Dilaudid Inj Carp IVP 1 mg Q2HR PRN Administration PAIN Piperacillin Sod/Tazobactam 100 mls @ 200 mls/hr 09/21/19 06:00 09/24/19 11:41 Sod 3.375 gm/ Sodium Chloride IV Infused Q6HR TSERING Infusion Vancomycin HCl 1 gm/ 500 mls @ 250 mls/hr 09/22/19 13:00 09/24/19 06:47 Vancomycin HCl 500 mg/ Sodium IV Infused Chloride Q8H TSERING Infusion Ondansetron HCl 4 mg 09/21/19 02:15 09/24/19 07:40 Zofran Inj IVP 4 mg Q6HR PRN Administration Nausea / Vomiting Pantoprazole Sodium 40 mg 09/21/19 07:00 09/24/19 06:48 Protonix PO 40 mg QDAC TSERING Administration Polyethylene Glycol 17 gm 09/22/19 09:00 09/24/19 10:03 Miralax PO Not Given DAILY TSERING Prochlorperazine Edisylate 10 mg 09/21/19 02:15 09/22/19 20:30 Compazine Inj IVP 10 mg Q6HR PRN Administration Nausea / Vomiting Sodium Chloride 10 ml 09/21/19 02:15 09/23/19 14:50 Normal Saline Flush 0.9% IVP 10 ml PRN PRN Administration NEEDED PER PROVIDER ORDERS Sodium Chloride 10 ml 09/21/19 09:00 09/24/19 04:38 Normal Saline Flush 0.9% IVP 10 ml 0100,0900,1700 TSERING Administration - Physical Exam Comments/Other: AAO, NAD, morbidly obese EOMI, MMM unlabored RA soft, nt/nd extensive minimal/improved cellulitis along right perivulvar and perineal area, 1cm opening with iodoform tape packing Impression/Plan - Problem List Problem List: Cellulitis & perivulvar phlegmon - on IV abx, still large area of improving cellulitis --> to PO today for home regimen --> US negative for new abscesses - small area of I&D --> daily packing, pt will attempt change today and if too difficult will plan to do BID flushes at home then pat dry and dress as able to avoid drainage on clothing --> FU in 5 days in office for wound check; call sooner with concerns, signs of increasing infection, skin closing over before full healing
== END 2019-09-24 15:20 | disposition home or self-care (01) | DRG 988 ==
LOC: ED 21:42 → MS2 09-21 02:15
PROVIDERS: ADMIT Family Medicine Sports Medicine; ATTEND Nurse Practitioner Gerontology
PROC: 0J9B0ZZ Drainage of Perineum Subcutaneous Tissue and Fascia, Open Approach (ICD-10-PCS; principal; 2019-09-21)
DX: N76.2 Acute vulvitis (principal); K61.0 Anal abscess; Z68.44 Body mass index [BMI] 60.0-69.9, adult; L02.215 Cutaneous abscess of perineum; R00.0 Tachycardia, unspecified; E66.01 Morbid (severe) obesity due to excess calories
CPT/HCPCS: 36415; 74177; 76857; 80048; 80053; 80202; 81001; 81025; 83605; 83690; 85025; 85027; 86140; 87040; 93005; 96365; 96375; 99284; 99285; A9270; J1170; J1650; J3370; Q9967; 81003; 86141; 87086